=== PATIENT | female | born 1965 | race Caucasian/White ===

== ENCOUNTER → 2016-04-12 | Outpatient (CLI) | payer BC, OTHER ==
[~2016-04-12] MED LIST: B-COTAB18 PO; CALC500C3 PO; CARB25TA16 PO; IBUP-1050 PO; SNM/25100 PO; VENL37.593 PO
--- NOTE | 2016-04-12 17:08 | DIAGNOSTIC IMAGING REPORT ---
CHEST 2 VIEWS ROUTINE HISTORY: Short of breath. ACUTE BRONCHITISW/BRONCHOSPASM COMPARISON: Chest 11/16/2015. FINDINGS: The lungs are clear. Cardiac silhouette is normal in size. No pleural effusions. No pneumothorax. IMPRESSION: No acute process. Electronically signed by: Aiden Lorenzana M.D. 04/12/2016 5:06 PM Dictated Date/Time: 04/12/2016 5:04 PM
== END | disposition home or self-care (01) ==
LOC: C.RAD 16:42
PROVIDERS: ATTEND Family Medicine
DX: J20.9 Acute bronchitis, unspecified (principal)

== ENCOUNTER → 2016-04-23 | Outpatient (CLI) | payer BC, OTHER ==
--- NOTE | 2016-04-23 09:41 | DIAGNOSTIC IMAGING REPORT ---
ABDOMEN LIMITED (US) CLINICAL HISTORY: Acute left upper quadrant abdominal pain. COMPARISON STUDY: Abdomen and pelvis CT 07/22/2007. FINDINGS: Real-time sonographic imaging of the left abdominal wall was performed. No masses, fluid collections, or hernia identified within the left upper quadrant abdominal wall. IMPRESSION: No hernia identified within the left upper quadrant abdominal wall. Electronically signed by: Aiden Lorenzana M.D. 04/23/2016 9:40 AM Dictated Date/Time: 04/23/2016 9:39 AM
== END | disposition home or self-care (01) ==
LOC: C.ULTRBC 08:38
PROVIDERS: ATTEND Nurse Practitioner Adult Health
DX: R10.12 Left upper quadrant pain (principal)

== ENCOUNTER → 2016-07-30 | Outpatient (CLI) | payer BC, OTHER | END | disposition home or self-care (01) | LOC: C.PAPS 17:34 | PROVIDERS: ATTEND Obstetrics & Gynecology | DX: Z01.411 Encounter for gynecological examination (general) (routine) with abnormal findings (principal) ==

== ENCOUNTER 2016-08-11 17:37 | Emergency (ER) | payer BC, OTHER ==
[~2016-08-11] VITALS: Ht 160 cm; Wt 82.4 kg
[2016-08-11 17:43] VITALS: TEMP 36.5; Ht 160 cm; Wt 82.4 kg
--- NOTE | 2016-08-11 18:21 | EMERGENCY ROOM VISIT NOTE ---
History Report prepared by Andrea: Gerardo Mckinnon Under the Supervision of: Dr. Tano Alvares M.D. First contact with patient: 17:52 Chief Complaint: FALL Stated Complaint: FALL History of Present Illness The patient is a 51 year old female who presents to the Emergency Room with complaints of a fall that occurred [employer]. She rates her pain a 4/10 in severity. [place] and walking on the stepping stones. She lost her balance and fell, hitting her right cheek on the ground. This is the second time she lost her balance like this and fell. She also injured her bilateral arms. She denies any loss of consciousness, dental pain, neck pain, vision problems, chest pain, shortness of breath, or abdominal pain. She is currently feeling dizzy. She has a past medical history of Parkinson's Disease which she states is what caused her to fall. She currently takes L-dopa and Effexor. Source of History: patient, spouse/significant other Onset: [employer] Position: other (face) Symptom Intensity: 4/10 Quality: ache Timing: constant Associated Symptoms: No LOC, No SOB, No abdominal pain, No chest pain, No neck pain Note: She is also experiencing bilateral arm pain and dizziness. Review of Systems See HPI for pertinent positives & negatives. A total of 10 systems reviewed and were otherwise negative. Past Medical & Surgical Medical Problems: (1) Abdominal pain (2) Abdominal pain (3) Anxiety State Nos (4) Asthma, Unspecified (5) Diverticulosis Colon (W/O Ment Of Hemorrhage) (6) Dyspnea (7) Endometriosis Nos (8) Esophageal Reflux (9) Lumbar Disc Displacement (10) Parkinson disease (11) Shortness of breath (12) Tachycardia Surgical Problems: (1) H/O splenectomy Old medical records were reviewed. Nurse's notes were reviewed and I agree with. Family History Cancer Diabetes mellitus Heart disease Social History Smoking Status: Former Smoker Smokeless Tobacco Use: No Drug Use: none Marital Status: Housing Status: lives with family Occupation Status: retired Current/Historical Medications Scheduled B-Complex Vitamins (Vitamin B Complex), 1 TAB PO DAILY Levodopa/Carbidopa (Sinemet Cr 25MG/100MG), 1 TABLET PO HS Levodopa/Carbidopa (Sinemet 25MG/100MG), 1 TABLET PO QID Venlafaxine Hcl (Venlafaxine Extended Rel), 37.5 MG PO DAILY Allergies Coded Allergies: Prochlorperazine (Unverified Allergy, Mild, CRAWLING SKIN AND AGGITATION, 02/25/16) Saccharin (Unverified Allergy, Mild, CRAWLING SKIN AND AGGITATION, ) BEE STING (Unverified Allergy, Unknown, SHORTNESS OF BREATH, 02/25/16) Physical Exam Vital Signs Date Time Temp Pulse Resp B/P Pulse Ox O2 Delivery O2 Flow Rate FiO2 08/11/16 17:43 36.5 77 16 115/80 98 Room Air Physical Exam General: Non-ill appearing middle aged female. Well developed well nourished in no acute distress, breathing comfortably on room air. Normal speech HEENT: Normal cephalic. Abrasion to the right cheek. Pupils are equal round and reactive to light. Extraocular movements are intact. No hyphema. Oropharynx is pink with moist mucous membranes. No swelling of the mouth lips or tongue. Neck: Supple with a midline trachea. No meningeal signs or stiffness, no JVD or bruits. No Stridor. Chest: Clear to auscultation bilaterally. No wheezes or rhonchi. No increased work of breathing. Heart: regular rate and rhythm. Abdomen: Soft nontender, nondistended without rebound guarding or rigidity. Extremities: Right wrist is mildly tender without deformity. There is tenderness to the hand and towards the elbow, but there is no neurologic or neurovascular compromise. Spine/Back. Non tender to palpation. No CVA tenderness Skin: Good turgor without rashes. Neurologic exam: Cranial nerves two through 12 are intact. Motor and sensation are intact and symmetrical throughout. Medical Decision & Procedures ER Provider Diagnostic Interpretation: Radiology results as stated below per my review and radiologist interpretation: RIGHT WRIST MIN 3 VIEWS ROUTINE CLINICAL HISTORY: eval for trauma Right COMPARISON: None. DISCUSSION: The bones and joint spaces appear intact. There is no evidence of fracture, dislocation or bony disease. There is no evidence for soft tissue swelling. IMPRESSION: Negative study. Electronically signed by: Tristin Alex M.D. 08/11/2016 6:54 PM Dictated Date/Time: 08/11/2016 6:[address] DOSE: 732.89 mGy.cm HISTORY: Trauma eval for trauma TECHNIQUE: Multiaxial CT images of the maxillofacial region were performed and reformatted in the coronal plane without the use of contrast. COMPARISON: None. FINDINGS: The visualized cervical spine, skull base, pterygoid plates, nasal bones, lamina papyracea, orbital floors, mandible, and zygomatic arches are intact. No fractures. The orbits are unremarkable. IMPRESSION: No fractures within the maxillofacial region. Electronically signed by: Tristin Alex M.D. 08/11/2016 6:53 PM Dictated Date/Time: 08/11/2016 6:[address] DOSE: HISTORY: Trauma. Mental status change. eval for trauma TECHNIQUE: Multiaxial CT images of the head were performed without the use of intravenous contrast. Comparison: None. Findings: The paranasal sinuses and mastoid air cells are clear. The calvarium and skull base are intact. The ventricles and sulci are within normal limits. There is no mass, hematoma, midline shift, or acute infarct. Impression: No acute intracranial abnormality. Electronically signed by: Tristin Alex M.D. 08/11/2016 6:51 PM Dictated Date/Time: 08/11/2016 6:51 PM RIGHT HAND MIN 3 VIEWS ROUTINE CLINICAL HISTORY: eval for trauma Right trauma. Pain. COMPARISON: None. DISCUSSION: The bones and joint spaces appear intact. There is no evidence of fracture, dislocation or bony disease. There is no evidence for soft tissue swelling. IMPRESSION: Negative study. Electronically signed by: Tristin Alex M.D. 08/11/2016 6:54 PM Dictated Date/Time: 08/11/2016 6:53 PM RIGHT ELBOW MIN 3 VIEWS ROUTINE CLINICAL HISTORY: eval for trauma Right trauma. Pain. COMPARISON: None. DISCUSSION: The bones and joint spaces appear intact. There is no evidence of fracture, dislocation or bony disease. There is no evidence for soft tissue swelling. IMPRESSION: Negative study. Electronically signed by: Tristin Alex M.D. 08/11/2016 6:53 PM Dictated Date/Time: 08/11/2016 6:53 PM ED Course 1752: Past medical records reviewed. The patient was evaluated in room B11B, and a complete history and physical examination were performed. 2: The patient is doing well. 1930: Upon reevaluation, the patient is resting. I discussed the results and treatment plan with her. She verbalized agreement of the treatment plan. The patient was discharged home. Medical Decision Differentials include facial fracture, facial contusion, orthopedic injury, Parkinson's disease, and ocular injury. This patient comes in as described above. She suffered a mechanical fall. There was no syncope or chest pain or any symptoms prior to falling. She does have Parkinson's. She hit her right face. She has a normal neurologic exam . She has an abrasion which does not require any suturing. She is up-to-date on her tetanus booster. CAT scan of the head and face are unremarkable and and do not show any acute intracranial process or fracture. X-rays are obtained of the right arm and were unremarkable. there is no evidence of fracture to the hand, wrist, or elbow. She feels much better. She will be discharged home. She initially said it felt like her vision was slightly blurry in the right but that has resolved. I encouraged her to return if that gets worse or follow-up with her eye doctor. Additionally she should return if: Worsening of symptoms, any new problems or concerns. be careful getting up and down to use ibuprofen for pain. She is happy with plan and was discharged to home with her driving. Impression Primary Impression: Concussion Additional Impressions: Facial contusion Right wrist sprain Parkinson disease Scribe Attestation The scribe's documentation has been prepared under my direction and personally reviewed by me in its entirety. I confirm that the note above accurately reflects all work, treatment, procedures, and medical decision making performed by me. Departure Information Dispostion Home / Self-Care Referrals No Doctor, Assigned (PCP) Forms HOME CARE DOCUMENTATION FORM, IMPORTANT VISIT INFORMATION Patient Instructions My [facility] Additional Instructions Rest. Be careful getting up and down. Use ibuprofen 400 mg every 6 hours if needed. Take with food Return if: Worsening of symptoms, any new problems or concerns. Follow-up with your doctor for recheck. Problem Qualifiers
--- NOTE | 2016-08-11 18:53 | DIAGNOSTIC IMAGING REPORT ---
HEAD CT NONCONTRAST CT DOSE: HISTORY: Trauma. Mental status change. eval for trauma TECHNIQUE: Multiaxial CT images of the head were performed without the use of intravenous contrast. Comparison: None. Findings: The paranasal sinuses and mastoid air cells are clear. The calvarium and skull base are intact. The ventricles and sulci are within normal limits. There is no mass, hematoma, midline shift, or acute infarct. Impression: No acute intracranial abnormality. Electronically signed by: Tristin Alex M.D. 08/11/2016 6:51 PM Dictated Date/Time: 08/11/2016 6:51 PM
--- NOTE | 2016-08-11 18:54 | DIAGNOSTIC IMAGING REPORT ---
MAXILLOFACIAL CT CT DOSE: 732.89 mGy.cm HISTORY: Trauma eval for trauma TECHNIQUE: Multiaxial CT images of the maxillofacial region were performed and reformatted in the coronal plane without the use of contrast. COMPARISON: None. FINDINGS: The visualized cervical spine, skull base, pterygoid plates, nasal bones, lamina papyracea, orbital floors, mandible, and zygomatic arches are intact. No fractures. The orbits are unremarkable. IMPRESSION: No fractures within the maxillofacial region. Electronically signed by: Tristin Alex M.D. 08/11/2016 6:53 PM Dictated Date/Time: 08/11/2016 6:52 PM
--- NOTE | 2016-08-11 18:55 | DIAGNOSTIC IMAGING REPORT ---
RIGHT ELBOW MIN 3 VIEWS ROUTINE CLINICAL HISTORY: eval for trauma Right trauma. Pain. COMPARISON: None. DISCUSSION: The bones and joint spaces appear intact. There is no evidence of fracture, dislocation or bony disease. There is no evidence for soft tissue swelling. IMPRESSION: Negative study. Electronically signed by: Tristin Alex M.D. 08/11/2016 6:53 PM Dictated Date/Time: 08/11/2016 6:53 PM
--- NOTE | 2016-08-11 18:55 | DIAGNOSTIC IMAGING REPORT ---
RIGHT HAND MIN 3 VIEWS ROUTINE CLINICAL HISTORY: eval for trauma Right trauma. Pain. COMPARISON: None. DISCUSSION: The bones and joint spaces appear intact. There is no evidence of fracture, dislocation or bony disease. There is no evidence for soft tissue swelling. IMPRESSION: Negative study. Electronically signed by: Tristin Alex M.D. 08/11/2016 6:54 PM Dictated Date/Time: 08/11/2016 6:53 PM
--- NOTE | 2016-08-11 18:56 | DIAGNOSTIC IMAGING REPORT ---
RIGHT WRIST MIN 3 VIEWS ROUTINE CLINICAL HISTORY: eval for trauma Right COMPARISON: None. DISCUSSION: The bones and joint spaces appear intact. There is no evidence of fracture, dislocation or bony disease. There is no evidence for soft tissue swelling. IMPRESSION: Negative study. Electronically signed by: Tristin Alex M.D. 08/11/2016 6:54 PM Dictated Date/Time: 08/11/2016 6:54 PM
[2016-08-11 19:55] VITALS: BP 100/73; PULSE 75; O2SAT 95
== END 2016-08-11 20:01 | disposition home or self-care (01) ==
LOC: C.EDB 17:37
DX: S06.0X0A Concussion without loss of consciousness, initial encounter (principal); S00.83XA Contusion of other part of head, initial encounter; S63.501A Unspecified sprain of right wrist, initial encounter; W19.XXXA Unspecified fall, initial encounter; G20 Parkinson's disease; F41.9 Anxiety disorder, unspecified; K21.9 Gastro-esophageal reflux disease without esophagitis; K57.90 Diverticulosis of intestine, part unspecified, without perforation or abscess without bleeding; J45.909 Unspecified asthma, uncomplicated; M51.26 Other intervertebral disc displacement, lumbar region; N80.9 Endometriosis, unspecified; Z98.890 Other specified postprocedural states; Z87.891 Personal history of nicotine dependence; Z79.899 Other long term (current) drug therapy; Z88.8 Allergy status to other drugs, medicaments and biological substances; Z91.030 Bee allergy status; Z80.9 Family history of malignant neoplasm, unspecified; Z83.3 Family history of diabetes mellitus; Z82.49 Family history of ischemic heart disease and other diseases of the circulatory system

== ENCOUNTER → 2017-10-28 | Outpatient (CLI) | payer BC, OTHER ==
[~2017-10-28] MED LIST changes: -CALC500C3 PO; -IBUP-1050 PO
== END | disposition home or self-care (01) ==
LOC: C.LABSPEC 11:44
PROVIDERS: ATTEND Nurse Practitioner Family
DX: J02.9 Acute pharyngitis, unspecified (principal)

== ENCOUNTER 2020-01-30 08:36 | Observation (INO) ==
[2020-01-30] MEDS ORDERED: ASPIRIN CHEW 324 MG PO STA (10:16)
--- NOTE | 2020-01-30 10:20 | Emergency Department Note ---
Impression & Plan Chest pain, Arm pain, Jaw pain, Cough, High serum chloride ED Provider Note NAME: DANIAL WILSON AGE: 54 SEX: F : 1965 ARRIVES VIA: Walk-In INFORMANT: Patient ED PROVIDER(S): Lincoln Arcos DO CHIEF COMPLAINT: Chest pain HPI: Patient is a 54-year-old female with a past medical history of hyperlipidemia, previous smoker, and Parkinson's disease. She notes she has had chest pain for the past 2 days. Is worse with exertion. She has been using her inhaler more frequently as well. She has an intermittent cough, no runny nose and loss of taste or smell. She notes cough is dry. Denies any belly pain, nausea, vomiting or diarrhea. No dysuria, urgency or frequency. No other exacerbating or remitting factors. Grandparents all had MIs. He has been tested for coronavirus as she works at a [employer] and everyone has been exposed recently to Covid through the inmates. ROS: See above HPI for pertinent positives & negatives. A total of 10 systems reviewed and were otherwise negative. PAST MEDICAL HISTORY:See Below PAST SURGICAL HISTORY:See Below FAMILY HISTORY:See Below SOCIAL HISTORY:See Below HOME MEDICATIONS:See Below ALLERGIES:See Below VITALS:See Below PHYSICAL EXAMINATION: GENERAL: Sitting up in bed, alert, well appearing, well nourished, no distress, non-toxic EYE EXAM: normal conjunctiva. OROPHARYNX: no exudate, no erythema, lips, buccal mucosa, and tongue normal and mucous membranes are moist NECK: supple, no nuchal rigidity, no adenopathy, non-tender LUNGS: Clear to auscultation. Normal chest wall mechanics HEART: no murmurs, S1 normal and S2 normal ABDOMEN: abdomen soft, non-tender, normo-active bowel sounds, no masses, no re bound or guarding. BACK: Back is symmetrical on inspection and there is no deformity, no midline te nderness, no CVA tenderness. SKIN: no rashes and no bruising UPPER EXTREMITIES: upper extremities are grossly normal. LOWER EXTREMITIES: No pitting edema. Calves are equal bilateral NEURO EXAM: Normal sensorium, cranial nerves II-XII grossly intact, normal speech, no gross weakness of arms, no gross weakness of legs. MEDICAL DECISION MAKING: Patient is a 54-year-old female who presents ER for midsternal chest pain, arm pain, jaw pain and some intermittent shortness of breath. She does have a very infrequent cough. Does have a history of hyperlipidemia and a previous smoker. Family history of MIs. Labs show no significant leukocytosis or anemia. INR unremarkable. D-dimer negative and a low risk patient. Will not pursue any further. Chloride slightly elevated. BMP was otherwise unremarkable as well as LFTs bilirubin and troponin was negative. Covid was negative. EKG was not significant change from previous. Chest x-ray without any focal infiltrate. Patient was given nitro and aspirin and had complete resolution of pain. Updated bedside and discussed with hospitalist with moderate risk from the heart score. Triage Nursing notes reviewed. Prior medical records reviewed Vital Signs: reviewed and remarkable for no significant abnormalities Differential diagnosis: Differential diagnoses includes but is not limited to acute coronary syndrome, myocardial infarction, pericarditis, pulmonary embolus, aortic dissection, pneumonia, pneumothorax, musculoskeletal, shingles, esophageal. ER treatment provided: See below Diagnostics interpreted by me: ECG: Sinus rhythm rate of 62 Normal axis No PVCs Normal QTC Nonspecific ST wave changes in the lateral leads T wave flattening in the inferior leads Unchanged from August 2019 Cardiac Monitoring: An order was placed for continuous cardiac monitoring. The monitor shows a rate of 65 with sinus rhythm. Laboratory studies: As stated above and show below. Imaging studies: Portable AP upright 1 view of the chest shows no focal infiltrate or pneumothorax Consultation(s): Discussed with Dr. Christiano Jones for further evaluation ED COURSE: Procedures: none Critical Care: None Past Med/Surg History Medical History (Updated 01/30/20 @ 14:39 by Lincoln Arcos DO) Asthma RES. INH USUALLY ONLY WHEN GETS SICK> OTHERWISE WELL CONTROLLED GERD (gastroesophageal reflux disease) Parkinsons disease Surgical History History of anesthesia reaction WAS SOMEWHAT AWAKE DURING EGD AND CAN REMEMBER GETTING SCOPE DOWN THROAT History of colonoscopy History of ERCP History of esophagogastroduodenoscopy (EGD) History of laparoscopy Hx of hand surgery TENDON REPAIR LEFT HAND Nausea and vomiting after administration of anesthetic agent S/P splenectomy S/P tonsillectomy and adenoidectomy S/P tubal ligation S/P wisdom tooth extraction Family History Mother Hypertension Essential tremor Unknown Heart disease Breast cancer Hypertension Son Schizophrenia Denies family history of Ovarian cancer Prostate cancer Myocardial infarction Colorectal cancer Social History Smoking Status: Former smoker Tobacco Type: Cigarettes Age Started Using Tobacco: 16; Age Quit Using Tobacco: 43; packs per day: 0.5; Number of Years Since Quit: 10; Second Hand Exposure: No; Hx Alcohol Use: Yes Alcohol type: wine Alcohol Intake Frequency: Monthly or Less Hx Substance Use: No Preferred Language: [place] Communication Ability: Effective Novelty Dipper Required: No Beliefs That Will Affect Care: None marital status: Current Living Situation: Spouse current occupational status: employed current occupation: NURSE Feels Safe at Home: Yes Childhood Exposure to Second-Hand Smoke: Yes Dental Care, Regularly: No Physical Activity Frequency: 3-4 Times per Week Seatbelt Use: always Sunscreen Use: Yes Assistive Devices: Glasses Allergies Allergies Allergy/AdvReac Type Severity Reaction Status Date / Time prochlorperazine Allergy Mild CRAWLING Verified 01/30/20 09:59 SKIN AND AGGITATION bee venom protein (honey bee) Allergy Unknown SHORTNESS Verified 01/30/20 09:59 OF BREATH Home Meds Home Medications Medication Instructions Recorded Confirmed ibuprofen [Advil] 800 mg PO DAILY PRN 08/20/19 01/30/20 multivitamin 1 tab PO QAM 08/20/19 01/30/20 omeprazole 20 mg PO HS 01/30/20 01/30/20 Previous Rx's Medication Instructions Recorded ondansetron 8 mg disintegrating 8 mg PO Q8H PRN #20 tab 09/18/19 tablet carbidopa ER 50 mg-levodopa 200 mg 1 tab PO TID #270 tab 11/05/19 tablet,extended release istradefylline 20 mg tablet 20 mg PO DAILY #30 tab 11/05/19 albuterol sulfate 90 mcg/actuation See Rx Instructions INH Q6H PRN 01/01/20 aerosol inhaler #18 gm Results & Data (ED) Vital Signs Vital Signs - 24 hr 01/30/20 08:40 01/30/20 09:34 01/30/20 09:49 Temperature 36.7 C Temperature Source Oral Pulse Rate 64 68 68 Pulse Rate [Apical] Pulse Rate from SpO2 Sensor 69 68 Pulse Rhythm [Apical] Pulse Strength [Apical] Respiratory Rate 20 23 22 Respiratory Effort / Characteristics Respiratory Depth Respiratory Pattern Blood Pressure 144/88 H 125/83 Blood Pressure [Left Arm] Blood Pressure Mean 106 90 Blood Pressure Mean [Left Arm] Blood Pressure Position [Left Arm] Pulse Oximetry 99 97 97 Oxygen Delivery Method Room Air Sepsis Recent Fever Within 48 Hours No Sepsis New/Unexplained Change in Mental Status N/A Sepsis Action Taken by Nursing No Action Required 01/30/20 09:55 01/30/20 10:00 01/30/20 10:01 Temperature Temperature Source Pulse Rate 64 62 Pulse Rate [Apical] Pulse Rate from SpO2 Sensor 62 62 Pulse Rhythm [Apical] Pulse Strength [Apical] Respiratory Rate 10 L 12 Respiratory Effort / Characteristics Non-Labored Respiratory Depth Normal Respiratory Pattern Regular Blood Pressure 125/68 Blood Pressure [Left Arm] Blood Pressure Mean 72 Blood Pressure Mean [Left Arm] Blood Pressure Position [Left Arm] Pulse Oximetry 95 87 L 97 Oxygen Delivery Method Room Air Sepsis Recent Fever Within 48 Hours Sepsis New/Unexplained Change in Mental Status Sepsis Action Taken by Nursing 01/30/20 10:30 01/30/20 10:40 01/30/20 10:50 Temperature Temperature Source Pulse Rate 60 55 L 80 Pulse Rate [Apical] Pulse Rate from SpO2 Sensor 58 L 54 L 60 Pulse Rhythm [Apical] Pulse Strength [Apical] Respiratory Rate 17 16 20 Respiratory Effort / Characteristics Respiratory Depth Respiratory Pattern Blood Pressure 125/77 Blood Pressure [Left Arm] Blood Pressure Mean 103 Blood Pressure Mean [Left Arm] Blood Pressure Position [Left Arm] Pulse Oximetry 92 95 90 Oxygen Delivery Method Sepsis Recent Fever Within 48 Hours Sepsis New/Unexplained Change in Mental Status Sepsis Action Taken by Nursing 01/30/20 10:57 01/30/20 10:59 01/30/20 11:00 Temperature Temperature Source Pulse Rate 62 Pulse Rate [Apical] 62 Pulse Rate from SpO2 Sensor 64 Pulse Rhythm [Apical] Regular Pulse Strength [Apical] Normal Respiratory Rate 21 17 Respiratory Effort / Characteristics Non-Labored Respiratory Depth Normal Respiratory Pattern Regular Blood Pressure 135/79 Blood Pressure [Left Arm] 125/77 Blood Pressure Mean 95 Blood Pressure Mean [Left Arm] 93 Blood Pressure Position [Left Arm] Sitting Pulse Oximetry 98 99 99 Oxygen Delivery Method Room Air Room Air Sepsis Recent Fever Within 48 Hours Sepsis New/Unexplained Change in Mental Status Sepsis Action Taken by Nursing 01/30/20 11:03 01/30/20 11:10 01/30/20 11:20 Temperature Temperature Source Pulse Rate 70 68 57 L Pulse Rate [Apical] 68 Pulse Rate from SpO2 Sensor 69 65 57 L Pulse Rhythm [Apical] Regular Pulse Strength [Apical] Normal Respiratory Rate 19 27 H 13 Respiratory Effort / Characteristics Non-Labored Respiratory Depth Normal Respiratory Pattern Regular Blood Pressure 108/61 Blood Pressure [Left Arm] 108/61 Blood Pressure Mean 86 Blood Pressure Mean [Left Arm] 76 Blood Pressure Position [Left Arm] Sitting Pulse Oximetry 95 95 95 Oxygen Delivery Method Room Air Sepsis Recent Fever Within 48 Hours Sepsis New/Unexplained Change in Mental Status Sepsis Action Taken by Nursing 01/30/20 11:30 01/30/20 11:40 01/30/20 11:50 Temperature Temperature Source Pulse Rate 62 59 L 60 Pulse Rate [Apical] Pulse Rate from SpO2 Sensor 61 59 L 58 L Pulse Rhythm [Apical] Pulse Strength [Apical] Respiratory Rate 12 15 17 Respiratory Effort / Characteristics Respiratory Depth Respiratory Pattern Blood Pressure 117/75 Blood Pressure [Left Arm] Blood Pressure Mean 87 Blood Pressure Mean [Left Arm] Blood Pressure Position [Left Arm] Pulse Oximetry 96 94 95 Oxygen Delivery Method Sepsis Recent Fever Within 48 Hours Sepsis New/Unexplained Change in Mental Status Sepsis Action Taken by Nursing 01/30/20 12:00 01/30/20 12:01 01/30/20 12:10 Temperature Temperature Source Pulse Rate 63 62 62 Pulse Rate [Apical] Pulse Rate from SpO2 Sensor 63 61 56 L Pulse Rhythm [Apical] Pulse Strength [Apical] Respiratory Rate 21 16 12 Respiratory Effort / Characteristics Respiratory Depth Respiratory Pattern Blood Pressure 120/66 Blood Pressure [Left Arm] Blood Pressure Mean 92 Blood Pressure Mean [Left Arm] Blood Pressure Position [Left Arm] Pulse Oximetry 95 94 91 Oxygen Delivery Method Sepsis Recent Fever Within 48 Hours Sepsis New/Unexplained Change in Mental Status Sepsis Action Taken by Nursing 01/30/20 12:18 01/30/20 12:20 01/30/20 12:21 Temperature Temperature Source Pulse Rate 67 73 73 Pulse Rate [Apical] Pulse Rate from SpO2 Sensor 69 70 73 Pulse Rhythm [Apical] Pulse Strength [Apical] Respiratory Rate 20 15 22 Respiratory Effort / Characteristics Respiratory Depth Respiratory Pattern Blood Pressure 125/78 137/95 Blood Pressure [Left Arm] Blood Pressure Mean 92 118 Blood Pressure Mean [Left Arm] Blood Pressure Position [Left Arm] Pulse Oximetry 97 97 94 Oxygen Delivery Method Sepsis Recent Fever Within 48 Hours Sepsis New/Unexplained Change in Mental Status Sepsis Action Taken by Nursing 01/30/20 12:30 01/30/20 12:31 01/30/20 12:40 Temperature Temperature Source Pulse Rate 63 62 62 Pulse Rate [Apical] Pulse Rate from SpO2 Sensor 64 63 63 Pulse Rhythm [Apical] Pulse Strength [Apical] Respiratory Rate 18 15 19 Respiratory Effort / Characteristics Respiratory Depth Respiratory Pattern Blood Pressure 98/56 L Blood Pressure [Left Arm] Blood Pressure Mean 67 Blood Pressure Mean [Left Arm] Blood Pressure Position [Left Arm] Pulse Oximetry 92 93 94 Oxygen Delivery Method Sepsis Recent Fever Within 48 Hours Sepsis New/Unexplained Change in Mental Status Sepsis Action Taken by Nursing 01/30/20 12:50 01/30/20 13:00 01/30/20 13:10 Temperature Temperature Source Pulse Rate 61 63 68 Pulse Rate [Apical] Pulse Rate from SpO2 Sensor 61 61 63 Pulse Rhythm [Apical] Pulse Strength [Apical] Respiratory Rate 17 14 14 Respiratory Effort / Characteristics Respiratory Depth Respiratory Pattern Blood Pressure 108/77 Blood Pressure [Left Arm] Blood Pressure Mean 82 Blood Pressure Mean [Left Arm] Blood Pressure Position [Left Arm] Pulse Oximetry 92 96 94 Oxygen Delivery Method Sepsis Recent Fever Within 48 Hours Sepsis New/Unexplained Change in Mental Status Sepsis Action Taken by Nursing 01/30/20 13:20 01/30/20 13:30 01/30/20 13:40 Temperature Temperature Source Pulse Rate 59 L 56 L 61 Pulse Rate [Apical] Pulse Rate from SpO2 Sensor 59 L 54 L 65 Pulse Rhythm [Apical] Pulse Strength [Apical] Respiratory Rate 13 21 16 Respiratory Effort / Characteristics Respiratory Depth Respiratory Pattern Blood Pressure 118/75 Blood Pressure [Left Arm] Blood Pressure Mean 80 Blood Pressure Mean [Left Arm] Blood Pressure Position [Left Arm] Pulse Oximetry 90 92 97 Oxygen Delivery Method Sepsis Recent Fever Within 48 Hours Sepsis New/Unexplained Change in Mental Status Sepsis Action Taken by Nursing 01/30/20 13:50 01/30/20 14:00 01/30/20 14:10 Temperature Temperature Source Pulse Rate 60 62 60 Pulse Rate [Apical] Pulse Rate from SpO2 Sensor 61 63 63 Pulse Rhythm [Apical] Pulse Strength [Apical] Respiratory Rate 14 21 15 Respiratory Effort / Characteristics Respiratory Depth Respiratory Pattern Blood Pressure 115/74 Blood Pressure [Left Arm] Blood Pressure Mean 77 Blood Pressure Mean [Left Arm] Blood Pressure Position [Left Arm] Pulse Oximetry 96 96 97 Oxygen Delivery Method Sepsis Recent Fever Within 48 Hours Sepsis New/Unexplained Change in Mental Status Sepsis Action Taken by Nursing 01/30/20 14:20 Temperature Temperature Source Pulse Rate 63 Pulse Rate [Apical] Pulse Rate from SpO2 Sensor 62 Pulse Rhythm [Apical] Pulse Strength [Apical] Respiratory Rate 24 Respiratory Effort / Characteristics Respiratory Depth Respiratory Pattern Blood Pressure Blood Pressure [Left Arm] Blood Pressure Mean Blood Pressure Mean [Left Arm] Blood Pressure Position [Left Arm] Pulse Oximetry 94 Oxygen Delivery Method Sepsis Recent Fever Within 48 Hours Sepsis New/Unexplained Change in Mental Status Sepsis Action Taken by Nursing Laboratory Data Result diagrams: 01/30/20 09:55 01/30/20 09:55 Lab Results 01/30/20 01/30/20 01/30/20 Range/Units 09:55 09:55 09:55 WBC 7.94 (4.8-10.8) K/uL RBC 4.51 (4.2-5.4) M/uL Hgb 14.4 (12.0-16.0) g/dL Hct 42.8 (37-47) % MCV 94.9 (80-100) fL MCH 31.9 (25-34) pg MCHC 33.6 (32-36) g/dL RDW Std Deviation 51.3 H (36.4-46.3) fL RDW Coeff of Klaus 14.7 H (11.5-14.5) % Plt Count 230 (130-400) K/uL MPV 13.9 H (7.4-10.4) fL Immature Gran % (Auto) 0.1 % Neut % (Auto) 36.3 % Lymph % (Auto) 44.5 % Roane % (Auto) 13.6 % Eos % (Auto) 5.0 % Baso % (Auto) 0.5 % Neut # (Auto) 2.88 (1.4-6.5) K/uL Lymph # (Auto) 3.53 H (1.2-3.4) K/uL Roane # (Auto) 1.08 H (0.11-0.59) K/uL Eos # (Auto) 0.40 (0-0.5) K/uL Baso # (Auto) 0.04 (0-0.2) K/uL Immature Gran # (Auto) 0.01 (0.00-0.02) K/uL PT 10.5 (9.0-12.0) Seconds INR 1.0 (0.9-1.1) APTT 28.4 (21.0-31.0) Seconds PTT Ratio 1.0 D-Dimer 460 (0-500) ug/L FEU Sodium 142 (136-145) mmol/L Potassium 3.6 (3.5-5.1) mmol/L Chloride 110 H (98-107) mmol/L Carbon Dioxide 31 (21-32) mmol/L Anion Gap 1.0 L (3-11) BUN 10 (7-18) mg/dl Creatinine 0.69 (0.6-1.2) mg/dl Est Cr Clr Drug Dosing Not Reportable Est GFR ( Amer) 115.2 Est GFR (Non-Af Amer) 99.4 BUN/Creatinine Ratio 15.1 (10-20) Glucose 85 (70-99) mg/dl Calcium 8.9 (8.5-10.1) mg/dl Total Bilirubin 0.5 (0.2-1) mg/dl AST 17 (15-37) U/L ALT 12 (12-78) U/L Alkaline Phosphatase 98 (45-117) U/L Troponin I < 0.015 (0-0.045) ng/ml Total Protein 7.3 (6.4-8.2) gm/dl Albumin 3.7 (3.4-5.0) gm/dl Globulin 3.6 (2.5-4.0) gm/dl Albumin/Globulin Ratio 1.0 (0.9-2) COVID-19 Eval Order COVID-19 PCR (Negative) 01/30/20 01/30/20 Range/Units 12:18 12:18 WBC (4.8-10.8) K/uL RBC (4.2-5.4) M/uL Hgb (12.0-16.0) g/dL Hct (37-47) % MCV (80-100) fL MCH (25-34) pg MCHC (32-36) g/dL RDW Std Deviation (36.4-46.3) fL RDW Coeff of Klaus (11.5-14.5) % Plt Count (130-400) K/uL MPV (7.4-10.4) fL Immature Gran % (Auto) % Neut % (Auto) % Lymph % (Auto) % Roane % (Auto) % Eos % (Auto) % Baso % (Auto) % Neut # (Auto) (1.4-6.5) K/uL Lymph # (Auto) (1.2-3.4) K/uL Roane # (Auto) (0.11-0.59) K/uL Eos # (Auto) (0-0.5) K/uL Baso # (Auto) (0-0.2) K/uL Immature Gran # (Auto) (0.00-0.02) K/uL PT (9.0-12.0) Seconds INR (0.9-1.1) APTT (21.0-31.0) Seconds PTT Ratio D-Dimer (0-500) ug/L FEU Sodium (136-145) mmol/L Potassium (3.5-5.1) mmol/L Chloride (98-107) mmol/L Carbon Dioxide (21-32) mmol/L Anion Gap (3-11) BUN (7-18) mg/dl Creatinine (0.6-1.2) mg/dl Est Cr Clr Drug Dosing Est GFR ( Amer) Est GFR (Non-Af Amer) BUN/Creatinine Ratio (10-20) Glucose (70-99) mg/dl Calcium (8.5-10.1) mg/dl Total Bilirubin (0.2-1) mg/dl AST (15-37) U/L ALT (12-78) U/L Alkaline Phosphatase (45-117) U/L Troponin I (0-0.045) ng/ml Total Protein (6.4-8.2) gm/dl Albumin (3.4-5.0) gm/dl Globulin (2.5-4.0) gm/dl Albumin/Globulin Ratio (0.9-2) COVID-19 Eval Order Covid19 Done at [facility] COVID-19 PCR NEGATIVE (Negative) Administered Medications Nitroglycerin (Nitroglycerin Sl 0.4 Mg/Tab Tab) 0.4 mg SL PRN PRN PRN Reason: chest pain Stop: 02/29/20 10:15 Last Admin: 01/30/20 12:18 Dose: 0.4 mg Documented by: [id number] Admin: 01/30/20 11:00 Dose: 0.4 mg Documented by: [id number] Discontinued Medications Al Hydrox/Mg Hydrox/Simethicone (Aluminum/Magnesium Susp 30 Ml Udc) 30 ml PO NOW STA Stop: 01/30/20 14:24 Last Admin: 01/30/20 14:33 Dose: 30 ml Documented by: [id number] Aspirin (Aspirin Chew 324 Mg) 324 mg PO NOW STA Stop: 01/30/20 10:17 Last Admin: 01/30/20 11:01 Dose: 324 mg Documented by: [id number] Discharge Plan Visit Data Chief Complaint: Shortness of Breath/Dyspnea Stated Complaint: CHEST PAIN ED Provider: Lincoln Arcos Discharge Problem: Chest pain, Arm pain, Jaw pain, Cough, High serum chloride Forms Stand Alone Forms: [facility] Prescriptions Prescriptions: No Action albuterol sulfate [Ventolin HFA] 90 mcg/actuation HFA aerosol inhaler See Rx Instructions INH Q6H PRN (Reason: Shortness Of Breath) Qty: 18 RF: 2 ondansetron 8 mg tablet,disintegrating 8 mg PO Q8H PRN (Reason: nausea and vomiting) Qty: 20 RF: 0 Nourianz 20 mg tablet 20 mg PO DAILY Qty: 30 RF: 3 carbidopa-levodopa 50-200 mg tablet extended release 1 tab PO TID Qty: 270 RF: 3 multivitamin Tablet 1 tab PO QAM RF: 0 ibuprofen [Advil] 200 mg Tablet 800 mg PO DAILY PRN (Reason: Pain) RF: 0 omeprazole 20 mg Tablet,Disintegrat, Delay Rel 20 mg PO HS RF: 0 Discharge Problem: Chest pain Qualifiers: Chest pain type: unspecified Qualified Code(s): R07.9 - Chest pain, unspecified Arm pain Qualifiers: Laterality: left Qualified Code(s): M79.602 - Pain in left arm
[2020-01-30 10:30] LABS: Basophils # (auto) 0.04 K/uL (0-0.2); Basophils % (auto) 0.5 %; Hematocrit (blood only) 42.8 % (37-47); Hemoglobin 14.4 g/dL (12.0-16.0); Immature Granulocytes # (auto) 0.01 K/uL (0.00-0.02); Immature Granulocytes % (auto) 0.1 %; Lymphocytes # (auto) 3.53 K/uL (1.2-3.4); Lymphocytes % (auto) 44.5 %; Mean Corpuscular Hemoglobin 31.9 pg (25-34); Mean Corpuscular Hgb Conc 33.6 g/dL (32-36); Mean Corpuscular Volume 94.9 fL (80-100); Mean Platelet Volume 13.9 fL (7.4-10.4); Monocytes # (auto) 1.08 K/uL (0.11-0.59); Monocytes % (auto) 13.6 %; Neutrophils # (auto) 2.88 K/uL (1.4-6.5); Neutrophils % (auto) 36.3 %; Platelet Count 230 K/uL (130-400); RDW Coefficient of Variation 14.7 % (11.5-14.5); RDW Standard Deviation 51.3 fL (36.4-46.3); Red Blood Count 4.51 M/uL (4.2-5.4); White Blood Count 7.94 K/uL (4.8-10.8)
[2020-01-30 10:46] LABS: D Dimer 460 ug/L FEU (0-500); Partial Thromboplastin Time 28.4 Seconds (21.0-31.0); Prothrombin Time 10.5 Seconds (9.0-12.0)
[2020-01-30 10:47] LABS: Alanine Aminotransferase 12 U/L (12-78); Albumin Level 3.7 gm/dl (3.4-5.0); Aspartate Aminotransferase 17 U/L (15-37); BUN Creatinine Ratio 15.1 (10-20); Blood Urea Nitrogen 10 mg/dl (7-18); Calcium 8.9 mg/dl (8.5-10.1); Carbon Dioxide 31 mmol/L (21-32); Chloride 110 mmol/L (98-107); Est GFR (African American) 115.2; Est GFR (Non-African American) 99.4; Glucose 85 mg/dl (70-99); Potassium 3.6 mmol/L (3.5-5.1); Sodium 142 mmol/L (136-145)
[2020-01-30 10:51] LABS: Alkaline Phosphatase 98 U/L (45-117); Bilirubin,Total 0.5 mg/dl (0.2-1); Globulin 3.6 gm/dl (2.5-4.0); Total Protein 7.3 gm/dl (6.4-8.2); Troponin I < 0.015 ng/ml (0-0.045)
[2020-01-30] MEDS: NITROGLYCERIN SL 0.4 MG/TAB TAB SL PRN ×2 (11:00→12:18)
--- NOTE | 2020-01-30 11:47 | XRay Report ---
XR chest 1V portable CLINICAL HISTORY: Chest pain. Cough. COMPARISON STUDY: Chest radiograph January 08, 2019. FINDINGS: Lung volumes are normal. Lungs are clear. There is no pneumothorax or pleural effusion. Car diac size is at the upper limits of normal and unchanged. Mediastinal contours are normal. There is n o evidence for pulmonary edema. IMPRESSION: No acute cardiopulmonary findings. ACT 112: Negative or not required by law. Electronically signed by: Volodymyr Peoples M.D. 01/30/2020 11:45 AM
--- NOTE | 2020-01-30 13:00 | History & Physical Report ---
Date of Service January 30, 2020 Assessment & Plan (1) Atypical chest pain: Relatively low suspicion based on history although exertional nature and lack of alternative explanation for pain is concerning. Serial troponins overnight. Stress echo in AM if negative. HbA1C and lipid panel in AM for risk reduction. Nitro patch overnight as has been helpful for the pain (2) Parkinson disease: Diagnosed 2011 - freezing and spacing out. Continue Sinemet ER 50/200 3 times daily. Continue Nourianz 20 mg p.o. daily (3) DVT prophylaxis: Low risk, no prophylaxis indicated. Admission and Anticipated Discharge Date Admission Date: 01/30/2020 History of Present Illness Chief Complaint: Chest pain Primary Care Provider: Erin Rodriguez MD Irina Dykes is a 54-year-old female with Parkinson disease who presents to the ER with chest pain. Started 2 days ago. Slightly on right anterior chest. Not fully resolved since but would wax and wane. Moved to left side and now radiating to back and left arm. Exertional. Non-pleuritic/positional/related to food. No nausea, vomiting, diaphoresis (small hot flash this morning), shortness of breath. Took x2 PO simethicone last night with no effect. Using albuterol inhaler this weekend due to wheezing and non-productive cough but she does not related the chest pain to this and no difference with her albuterol inhaler. Smoked 10 years ago. 15 years @ 5-6 cigarettes/day. Parents in good health. No siblings. Grandparents of heart attacks in their 70s. History of GERD and ulcers but this feels different. Previously on ranitidine as needed, stopped taking this when it was taken off the market. Now regularly taking omeprazole 20mg PO daily which controls her symptoms. In the ER CXR showed no acute cardiopulmonary findings, EKG was unremarkable for acute coronary syndrome, d-dimer and initial troponin negative. He was given 324 mg p.o. aspirin and 0.4 mg SL nitroglycerin with relief of her pain. COVID- 19 testing performed due to her occupation in [employer] which was subsequently negative. She was referred to the medicine team for consideration of admission for chest pain rule out ND.w Allergies Allergy/AdvReac Type Severity Reaction Status Date / Time prochlorperazine Allergy Mild CRAWLING Verified 01/30/20 09:59 SKIN AND AGGITATION bee venom protein (honey bee) Allergy Unknown SHORTNESS Verified 01/30/20 09:59 OF BREATH Home Medications Home Medications Medication Instructions Recorded Confirmed Type ibuprofen [Advil] 800 mg PO DAILY PRN 08/20/19 01/30/20 History multivitamin 1 tab PO QAM 08/20/19 01/30/20 History ondansetron 8 mg disintegrating 8 mg PO Q8H PRN #20 tab 09/18/19 01/30/20 Rx tablet carbidopa ER 50 mg-levodopa 200 mg 1 tab PO TID #270 tab 11/05/19 01/30/20 Rx tablet,extended release istradefylline 20 mg tablet 20 mg PO DAILY #30 tab 11/05/19 01/30/20 Rx albuterol sulfate 90 mcg/actuation See Rx Instructions INH Q6H PRN 01/01/20 01/30/20 Rx aerosol inhaler #18 gm omeprazole 20 mg PO HS 01/30/20 01/30/20 History Past Med/Surg History Medical History (Updated 01/31/20 @ 07:33 by Christiano Jones MD) Asthma RES. INH USUALLY ONLY WHEN GETS SICK> OTHERWISE WELL CONTROLLED GERD (gastroesophageal reflux disease) Parkinsons disease Surgical History History of anesthesia reaction WAS SOMEWHAT AWAKE DURING EGD AND CAN REMEMBER GETTING SCOPE DOWN THROAT History of colonoscopy History of ERCP History of esophagogastroduodenoscopy (EGD) History of laparoscopy Hx of hand surgery TENDON REPAIR LEFT HAND Nausea and vomiting after administration of anesthetic agent S/P splenectomy S/P tonsillectomy and adenoidectomy S/P tubal ligation S/P wisdom tooth extraction Family History Mother Hypertension Essential tremor Unknown Heart disease Breast cancer Hypertension Son Schizophrenia Denies family history of Ovarian cancer Prostate cancer Myocardial infarction Colorectal cancer Social History Smoking Status: Former smoker Tobacco Type: Cigarettes Age Started Using Tobacco: 16; Age Quit Using Tobacco: 43; packs per day: 0.5; Number of Years Since Quit: 10; Second Hand Exposure: No; Hx Alcohol Use: Yes Alcohol type: wine Alcohol Intake Frequency: Monthly or Less Hx Substance Use: No Preferred Language: Gabonese Communication Ability: Effective Junior Accountant Required: No Beliefs That Will Affect Care: None marital status: Current Living Situation: Spouse current occupational status: employed current occupation: NURSE Other Information That Helps Us Care for You: No Feels Safe at Home: Yes Safety Concerns: Feels Safe At This Time Childhood Exposure to Second-Hand Smoke: Yes Dental Care, Regularly: No Physical Activity Frequency: 3-4 Times per Week Seatbelt Use: always Sunscreen Use: Yes Assistive Devices: None Review of Systems Review of Systems: All systems reviewed & are unremarkable except as noted in HPI & below Gastrointestinal: Decreased appetite Physical Exam Constitutional: well developed and well nourished; no acute distress Eyes: + anicteric sclerae; normal pupil size ENMT: external ear and nose normal, oropharynx normal Neck: trachea midline, no thyromegaly Respiratory: normal respiratory effort, lungs clear to auscultation Cardiovascular: Rate/Rhythm: regular rate and regular rhythm Heart Sounds: no murmur Vessels: no JVD Extremities: normal capillary refill and + pedal edema (trace to mid shins, equal b/l); no calf tenderness Chest (Breasts): Additional Comments: Chest pain not reproducible Gastrointestinal (Abdomen): normal bowel sounds, soft, nontender, no hepatosplenomegaly Musculoskeletal: no cyanosis or clubbing, extremities motor strength 5/5 Skin: no rashes, warm and dry Neurologic: moves all extremities and awake; not confused Psychiatric: A+Ox3, euthymic affect Results & Data Results & Data ([facility]) Vital Signs (Past 12 Hours) Vital Signs Temp Pulse Pulse Resp BP BP Pulse Ox 01/30/20 12:10 62 12 91 01/30/20 12:01 62 16 120/66 94 01/30/20 12:00 63 21 95 01/30/20 11:50 60 17 95 01/30/20 11:40 59 L 15 94 01/30/20 11:30 62 12 117/75 96 01/30/20 11:20 57 L 13 95 01/30/20 11:10 68 27 H 95 01/30/20 11:03 70 68 19 108/61 108/61 95 01/30/20 11:00 62 17 135/79 99 01/30/20 10:59 99 01/30/20 10:57 62 21 125/77 98 01/30/20 10:50 80 20 90 01/30/20 10:40 55 L 16 95 01/30/20 10:30 60 17 125/77 92 01/30/20 10:01 62 12 125/68 97 01/30/20 10:00 64 10 L 87 L 01/30/20 09:55 95 01/30/20 09:49 68 22 97 01/30/20 09:34 68 23 125/83 97 01/30/20 08:40 36.7 C 64 20 144/88 H 99 Diagnostic Findings XR chest 1V portable IMPRESSION: No acute cardiopulmonary findings. ECG Indication: chest pain Rate (beats per minute): 62 Rhythm: normal sinus Findings: no acute ischemic change Comparison ECG Date: from (August 20, 2019) Change: no significant change Code Status & VTE Plan Code Status Full VTE Prophylaxis Plan VTE Prophylaxis will be ordered: No PG Care Time/CCT Total # of Minutes Spent Total Time Spent with Patient: Total time spent is greater than 50% in coordination of care (as documented) at patient's floor/unit and/or counseling patient: Coding Level of Care Code 12086 OBS Care - Level 3 Diagnoses Atypical chest pain R07.89 Parkinson disease G20 DVT prophylaxis Z29.9
[2020-01-30] MEDS ORDERED: ALUMINUM/MAGNESIUM SUSP 30 ML UDC PO STA (14:23)
[2020-01-30] MEDS ORDERED: POLYETHYLENE (MIRALAX) 17 GM PACK PO PRN ×2 (15:39→15:47)
[2020-01-30] MEDS ORDERED: ONDANSETRON INJ 2 MG/ML 2 ML VIAL IV PRN ×2 (15:39→15:47)
[2020-01-30] MEDS ORDERED: NITROGLYCERIN 2% OINTMENT 30GM TUBE EXT SCH ×2 (15:39→15:45)
[2020-01-30] MEDS ORDERED: ACETAMINOPHEN 325 MG TAB PO PRN (15:39)
[2020-01-30] MEDS ORDERED: NITROGLYCERIN SL 0.4 MG/TAB TAB SL PRN ×2 (15:39→15:47)
[2020-01-30] MEDS ORDERED: ONDANSETRON 8MG OD TAB PO PRN ×2 (15:39→15:47)
[2020-01-30] MEDS ORDERED: ALBUTEROL HFA 8 GM INHALER INH PRN ×2 (15:39→15:47)
[2020-01-30] MEDS: NITROGLYCERIN 2% OINTMENT 30GM TUBE EXT SCH ×2 (16:23→21:50)
[2020-01-30] MEDS: CARBIDOPA/LEVODOPA 50/200MG EXT REL TAB PO SCH (18:56)
[2020-01-30] MEDS: ACETAMINOPHEN 325 MG TAB PO PRN (20:40)
[2020-01-30] MEDS ORDERED: LANSOPRAZOLE 30 MG SOLTAB PO SCH (21:00)
[2020-01-30] MEDS ORDERED: OMEPRAZOLE 20 MG PO SCH (21:00)
[2020-01-30] MEDS ORDERED: CARBIDOPA/LEVODOPA 50/200MG EXT REL TAB PO SCH (21:00)
[2020-01-31] MEDS: NITROGLYCERIN 2% OINTMENT 30GM TUBE EXT SCH ×2 (04:26→04:31)
[2020-01-31] MEDS: ACETAMINOPHEN 325 MG TAB PO PRN (05:41)
[2020-01-31 06:02] LABS: Hematocrit (blood only) 40.3 % (37-47); Hemoglobin 13.7 g/dL (12.0-16.0); Mean Corpuscular Hemoglobin 32.2 pg (25-34); Mean Corpuscular Volume 94.8 fL (80-100); Mean Platelet Volume 13.3 fL (7.4-10.4); Platelet Count 226 K/uL (130-400); RDW Coefficient of Variation 14.6 % (11.5-14.5); RDW Standard Deviation 50.9 fL (36.4-46.3); Red Blood Count 4.25 M/uL (4.2-5.4); White Blood Count 10.61 K/uL (4.8-10.8)
--- NOTE | 2020-01-31 06:14 | Electrocardiogram Report ---
Test Reason : Blood Pressure : / mmHG Vent. Rate : 062 BPM Atrial Rate : 062 BPM P-R Int : 168 ms QRS Dur : 082 ms QT Int : 418 ms P-R-T Axes : 022 045 023 degrees QTc Int : 424 ms Normal sinus rhythm Nonspecific ST abnormality Abnormal ECG When compared with ECG of 20-AUG-2019 13:38, No significant change was found Confirmed by Shelton Eckert ([id number]) on 01/31/2020 6:14:31 AM Referred By: ED Confirmed By:Shelton Eckert
[2020-01-31 06:34] LABS: BUN Creatinine Ratio 17.3 (10-20); Blood Urea Nitrogen 13 mg/dl (7-18); Calcium 8.2 mg/dl (8.5-10.1); Carbon Dioxide 27 mmol/L (21-32); Chloride 110 mmol/L (98-107); Creatinine Clr Calc Pharmacy 94.6 ml/min; Glucose 85 mg/dl (70-99); Potassium 3.7 mmol/L (3.5-5.1); Sodium 141 mmol/L (136-145)
[2020-01-31 06:37] LABS: Estimated Average Glucose 120 mg/dl; Hemoglobin A1C 5.8 % (4.5-5.6)
[2020-01-31 06:40] LABS: Chol HDL Ratio 4; Cholesterol 188 mg/dl (0-200); HDL Cholesterol 54 mg/dl; LDL Cholesterol Calculated 114 mg/dl; Triglycerides 98 mg/dl (0-150); Troponin I < 0.015 ng/ml (0-0.045); VLDL Cholesterol 20 mg/dl
[2020-01-31] MEDS: CARBIDOPA/LEVODOPA 50/200MG EXT REL TAB PO SCH ×2 (08:19→12:17)
[2020-01-31] MEDS ORDERED: ASPIRIN 81 MG ECTAB PO SCH ×2 (09:00)
[2020-01-31] MEDS ORDERED: MULTIVITAMIN TAB PO SCH ×2 (09:00)
[2020-01-31] MEDS ORDERED: OPTIRAY 320 125ml IV ONE (13:51)
--- NOTE | 2020-01-31 14:11 | CT Scan Report ---
CT ANGIOGRAM OF THE CHEST CLINICAL HISTORY: Atypical chest pain. COMPARISON STUDY: Chest x-ray dated 01/30/2020. Chest CT dated 11/17/2015. TECHNIQUE: Following the IV administration of 120 cc of Optiray 320, CT angiogram of the chest was pe rformed from the upper abdomen to the thoracic inlet utilizing the pulmonary embolus protocol. Images are reviewed in the axial, sagittal, and coronal planes. 3-D MIPS images are created and assessed. I V contrast was administered without complication. A dose lowering technique was utilized adhering to the principles of ALARA. CT DOSE: 483.71 mGycm FINDINGS: Thyroid: Imaged portions of the thyroid gland are normal in size and attenuation. Thoracic aorta: The thoracic aorta is normal in caliber and demonstrates standard 3-vessel arch anato my. No dissection is seen. Pulmonary vasculature: The pulmonary trunk is normal in caliber. There are no filling defects identif ied in main, lobar, or segmental pulmonary branches to suggest pulmonary embolus. Heart: The heart is top normal in size and without pericardial effusion. Lungs and pleural spaces: The lungs and pleural spaces are clear noting dependent atelectasis. The tr achea and central airways are patent. Mediastinum: There is no mediastinal lymphadenopathy. Lynn: Clear. Axillae: There is no axillary lymphadenopathy. Upper abdomen: A normal spleen is not identified. Small nodules in the left upper quadrant below the diaphragm measuring up to 1.4 cm likely represent splenules. A small hiatal hernia is noted. Skeletal structures: The skeletal structures are osteopenic. No lytic or blastic bony lesions are see n. IMPRESSION: 1. There is no evidence of pulmonary embolus in the main, lobar, or segmental pulmonary arteries. 2. There is no airspace consolidation or pleural effusion. ACT 112: Negative or not required by law. Electronically signed by: Elroy Solorio M.D. 01/31/2020 2:10 PM
--- NOTE | 2020-01-31 16:03 | Discharge Summary ---
Date of Service date of admission - January 30, 2020 date of discharge - January 31, 2020 Admission HPI Per Admitting Provider Irina Dykes is a 54-year-old female with Parkinson disease who presents to the ER with chest pain. Started 2 days ago. Slightly on right anterior chest. Not f ully resolved since but would wax and wane. Moved to left side and now radiating to back and left arm. Exertional. Non-pleuritic/positional/related to food. No nausea, vomiting, diaphoresis (small hot flash this morning), shortness of breath. Took x2 PO simethicone last night with no effect. Using albuterol inhaler this weekend due to wheezing and non-productive cough but she does not related the chest pain to this and no difference with her albuterol inhaler. Smoked 10 years ago. 15 years @ 5-6 cigarettes/day. Parents in good health. No siblings. Grandparents of heart attacks in their 70s. History of GERD and ulcers but this feels different. Previously on ranitidine as needed, stopped taking this when it was taken off the market. Now regularly taking omeprazole 20mg PO daily which controls her symptoms. In the ER CXR showed no acute cardiopulmonary findings, EKG was unremarkable for acute coronary syndrome, d-dimer and initial troponin negative. He was given 324 mg p.o. aspirin and 0.4 mg SL nitroglycerin with relief of her pain. COVID- 19 testing performed due to her occupation in [employer] which was subsequently negative. She was referred to the medicine team for consideration of admission for chest pain rule out ND.w Principal Diagnosis chest pain - ACS ruled out, PE ruled out Discharge Exam Constitutional well developed, well nourished and + obese; no acute distress and no altered mental status ENMT external ear and nose normal, oropharynx normal Respiratory normal respiratory effort, lungs clear to auscultation Cardiovascular RRR, no murmur, no edema Heart Sounds: normal S1 and normal S2 Vessels: posterior tibial pulses present and dorsalis pedis pulses present; no JVD Chest (Breasts) Additional Comments: no reproducible chest wall pain to palpation Gastrointestinal (Abdomen) normal bowel sounds, soft, nontender, no hepatosplenomegaly Skin no rashes, warm and dry Psychiatric A+Ox3, euthymic affect Discharge Data Allergies Allergy/AdvReac Type Severity Reaction Status Date / Time prochlorperazine Allergy Mild CRAWLING Verified 01/30/20 09:59 SKIN AND AGGITATION bee venom protein (honey bee) Allergy Unknown SHORTNESS Verified 01/30/20 09:59 OF BREATH Ordered Studies 01/31/20 13:12 CT angio chest PE protocol Routine -- no PE, no infiltrates, no masses. Exercise stress echocardiogram - * no ischemia at 88% of MPHR * EF 55-60% * no diastolic dysfunction * normal valve function * normal wall motion Hospital Course (1) Atypical chest pain: Serial troponins negative. Telemetry normal. Stress echocardiogram without ischemia. Normal LV function and normal valve function. CTA chest without PE or other findings. 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 She had no findings on imaging or exam to suggest bronchitis or active asthma. Etiology of pain uncertain. There was no reproducibility on exam to suggest musculoskeletal etiology. Could be GI in origin. Recommended she increase her PPI to 40mg daily from 20mg. If GERD symptoms persist then outpatient GI consultation. Consider biliary work-up if pain recurs/persists (RUQ u/s, etc). (2) Parkinson disease: Diagnosed 2011. Continue Sinemet ER 50/200 3 times daily. Continue Nourianz 20 mg p.o. daily (3) Hyperlipoproteinemia: LDL 114 on lipid profile. Dietary/lifestyle changes recommended. (4) Prediabetes: Hemoglobin a1c 5.8%. Discussed diagnosis. Gave handout. Lifestyle changes advised. f/u with PCP for once-twice yearly a1c checks. Total Time Total Time Spent Total Time Spent (In Minutes): 30 Total Time Includes: Examination of the Patient, Discharge Planning, Medication Reconciliation and Communication With Other Providers Discharge Plan Discharge Items Patient Disposition: Home - Self-Care Reason For Visit: CHEST PAIN Discharge Diagnosis: Chest pain - heart attack ruled out; NORMAL stress test. CAT scan NEGATIVE for blood clots, pneumonia, or signs of COVID-19. COVID-19 swab also negative. Activity: Resume your previous activity Non-emergency contact: Primary Care Provider Call non-emergency contact if: you have any medication questions, your symptoms worsen, your pain is not controlled, your pain is worsening, your pain is unusual for you, your pain is concerning for you and you have a fever Follow-up/Referrals: Erin Rodriguez MD [Primary Care Provider] - 02/05/20 10:00 am (see Dr Rodriguez within 1 week ) Diet: Heart Healthy Addtl Attending Provider Instructions: You were admitted to the hospital because of chest pain and upper back pain. Your blood work for the heart was negative -- that is, no evidence of heart attack was found. Your heart monitoring (telemetry) was normal. COVID-19 testing was negative. Your CAT scan of the lungs was normal. You underwent a stress test and this was normal suggesting your chest pain was NOT from your heart. Your echocardiogram was normal. I am not fully certain if the pain was esophageal/reflux in origin but very well could be. Thus, please INCREASE your omeprazole to 40mg once daily. New script sent to [facility] for you. I doubt that the pain is musculoskeletal in origin. If your symptoms persist please contact your family doctor to discuss additional testing and/or referral (GI referral, gall bladder testing, endoscopy, etc). Finally, your "LDL" (bad cholesterol) was 114. Your hemoglobin a1c was 5.8% -- please see dedicated handout. Return to [facility] if - * you have fevers over 100 degrees * you have recurrent chest pains * you have shortness of breath * any other concerns Pending Studies at Discharge: No Stand-Alone Forms: My [facility], Work/School Release (Inpt), Smoking Cessation Medications and DC Order Prescriptions: New omeprazole 40 mg capsule,delayed release(DR/EC) 40 mg PO DAILY Qty: 30 RF: 5 Continued albuterol sulfate [Ventolin HFA] 90 mcg/actuation HFA aerosol inhaler See Rx Instructions INH Q6H PRN (Reason: Shortness Of Breath) Qty: 18 RF: 2 ondansetron 8 mg tablet,disintegrating 8 mg PO Q8H PRN (Reason: nausea and vomiting) Qty: 20 RF: 0 Nourianz 20 mg tablet 20 mg PO DAILY Qty: 30 RF: 3 carbidopa-levodopa 50-200 mg tablet extended release 1 tab PO TID Qty: 270 RF: 3 multivitamin Tablet 1 tab PO QAM RF: 0 ibuprofen [Advil] 200 mg Tablet 800 mg PO DAILY PRN (Reason: Pain) RF: 0 Discontinued omeprazole 20 mg Tablet,Disintegrat, Delay Rel 20 mg PO HS RF: 0 Discharge Orders: Discharge Order (Routine); Ordered 01/31/20 Ordered By: Christiano Bui/Other Patient Handouts: A1C, Lipid Panel Admission Data Admit Date/Time: 01/30/20 14:21 Attending Provider: Christiano Jones Admit Provider: Christiano Jones Primary Care Provider: Erin Rodriguez Other Providers: Christiano Jones Other Interventions: Discharge Summary Assessment (RN) Last Done: 01/31/20 16:00 Coding Level of Care Code 50228 OBS Care - Discharge Diagnoses Atypical chest pain R07.89 Parkinson disease G20 Hyperlipoproteinemia E78.5 Prediabetes R73.03
--- NOTE | 2020-01-31 19:59 | XCELERA ---
[id number]
== END 2020-01-31 16:23 | disposition home or self-care (01) ==
LOC: 2N 08:36 → ED 08:36

== ENCOUNTER 2023-03-28 18:51 | Inpatient (IN) ==
[2023-03-28] MEDS ORDERED: ALBUT/IPRATROP 3MG/0.5MG NEB 3 ML VIAL NEB ONE (19:32)
--- NOTE | 2023-03-28 19:33 | Emergency Department Note ---
Impression & Plan COVID-19, Acute hypoxemic respiratory failure, Cough, Acute dyspnea ED Provider Note HISTORY OF PRESENT ILLNESS: Patient is a 58-year-old female presenting with cough and shortness of breath. Patient reports that symptoms started 5 days ago. She started on a prednisone taper at that time and has been using albuterol treatments with little relief in symptoms. Reports that she tested for COVID 5 days ago that was negative, but tested positive yesterday. Reports her shortness of breath and increased work of breathing has significantly worsened and she feels like she cannot catch her breath. She is been monitoring her pulse ox levels at home and notes that today that her saturations were in the low 90s and in the upper 80s. As the evening progressed, her sats were in the mid 80s, prompting her to present to the ER. Denies any DVT or PE history. She is not on any anticoagulation. Denies any significant chest pain. Denies any fevers. ROS: as above PHYSICAL EXAM: Constitutional: Patient appears in no acute distress. HENT: Head: Normocephalic and atraumatic. Eyes: EOMI, PERRL Mouth/Throat: Mucous membranes moist. Neck: Trachea midline. Neck supple. Cardiovascular: RRR, No murmurs, rubs or gallops. Intact distal pulses. Pulmonary/Chest: No respiratory distress. Breath sounds clear and equal bilaterally. No wheezes or rales. Abdominal: Abdomen soft, no tenderness, rebound or guarding. Musculoskeletal: No edema, tenderness or deformity noted. Skin: Warm and dry. No rash, erythema, pallor or cyanosis Psychiatric: Appropriate mood and affect for situation. Neurological: Alert and keenly responsive. CN II-XII grossly intact, moving all extremities equally and fully. MDM: - Vitals signs stable. - History obtained via patient. Patient presents with cough and shortness of breath. Patient reports symptoms started 5 days ago. Has been on prednisone since that time. She been using albuterol treatments at home with little relief in symptoms. She tested positive for COVID as of yesterday. Reports shortness of breath and work of breathing has increased. She also has had low pulse ox levels at home. Denies any chest pain. Denies any DVT or PE history - Chronic conditions affecting care: Parkinson's disease; GERD - Differential diagnoses include, but are not limited to: Congestive heart failure; acute coronary syndrome; COPD/asthma exacerbation; pulmonary edema; pulmonary embolism; pneumonia; pneumothorax; viral syndrome - Order placed for continuous cardiac monitoring. At this time, monitor showed rate of 91 bpm with normal sinus rhythm, per my interpretation. - External medical records reviewed. - EKG interpreted by myself showed normal sinus rhythm. Rate 68 bpm. QTc 440. No acute ischemic changes - Laboratory workup interpreted by myself showed slight leukocytosis (WBC 10.98); stable electrolytes; normal troponin; normal BNP - CXR negative for pneumonia, per my interpretation - Patient given hour long duoneb treatment. However, still complaining of shortness of breath. Her oxygen saturations dipped into the upper 80s and she was started on supplemental oxygen. Was given 125 mg of IV Solu-Medrol. - CT PE negative for PE but showed possible left lower lobe pneumonia versus inflammatory etiology - Given new oxygen requirement, will admit to hospital. - Discussion was had with patient care technician about patient's case and need for admission. - Hospitalist, Dr. Velasquez, consulted for admission - Patient admitted to [facility] for further evaluation and management. ASSESSMENT AND PLAN: Diagnosis: COVID-19; acute hypoxic respiratory failure; cough; dyspnea Plan: admit Past Med/Surg History Medical History Prediabetes History of basal cell carcinoma Obesity Parkinson disease GERD (gastroesophageal reflux disease) Asthma Parkinsons disease Diverticulosis of colon Surgical History History of basal cell carcinoma (BCC) excision History of anesthesia reaction History of esophagogastroduodenoscopy (EGD) Nausea and vomiting after administration of anesthetic agent History of laparoscopy Hx of hand surgery History of ERCP History of colonoscopy S/P tubal ligation S/P wisdom tooth extraction S/P tonsillectomy and adenoidectomy S/P splenectomy Family History Mother Hypertension Essential tremor Unknown Heart disease Breast cancer Hypertension Son Schizophrenia Father TIA (transient ischemic attack) New onset a-fib Denies family history of Ovarian cancer Prostate cancer Myocardial infarction Colorectal cancer Social History Smoking Status: Never smoker Tobacco Type: Cigarettes Age Started Using Tobacco: 16; Age Quit Using Tobacco: 43; packs per day: 0.5; Second Hand Exposure: No; Do You Dip or Chew Tobacco: No; Hx Alcohol Use: Yes Alcohol type: beer and wine Alcohol Intake Frequency: Monthly or Less Hx Substance Use: No Preferred Language: P[place] Communication Ability: Effective Visual Impairment: No Limitations Hearing Ability: Normal 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 Beliefs That Will Affect Care: None marital status: Current Living Situation: Spouse current occupational status: employed current occupation: RN How many Children do You have: 5 Feels Safe at Home: Yes Childhood Exposure to Second-Hand Smoke: Yes Diet: regular Dental Care, Regularly: No Physical Activity Frequency: 3-4 Times per Week Seatbelt Use: always Sunscreen Use: Yes Assistive Devices: Glasses Allergies Allergies Allergy/AdvReac Type Severity Reaction Status Date / Time bee venom protein (honey bee) Allergy Unknown SHORTNESS Verified 03/24/23 10:42 OF BREATH No Known Drug Allergies Allergy Verified 03/24/23 10:42 Home Meds Home Medications Medication Instructions Recorded Confirmed ibuprofen 200 mg tablet (Advil) 800 mg PO DAILY PRN Pain 08/20/19 03/24/23 multivitamin 1 tab PO QAM 08/20/19 03/24/23 omeprazole 40 mg capsule,delayed 40 mg PO QPM 02/17/22 03/24/23 release valacyclovir 1 gram tablet 1,000 mg PO Q8H PRN .Breakouts 04/29/22 03/24/23 (Valtrex) ketoconazole 2 % topical cream 1 applic topical BID PRN .. 10/03/22 03/24/23 Previous Rx's Medication Instructions Recorded ketoconazole 2 % shampoo 1 applic topical .COMPLEX #120 mL 09/09/22 carbidopa ER 50 mg-levodopa 200 mg 1 tab PO TID 90 days #270 tabs 10/04/22 tablet,extended release istradefylline 20 mg tablet 20 mg PO QAM #90 tabs 10/13/22 (Nourianz) metoprolol succinate 25 mg 12.5 mg (1/2 x 25 mg) PO DAILY #45 01/13/23 tablet,extended release 24 hr tabs ondansetron 8 mg disintegrating 8 mg PO Q8H PRN nausea and 03/04/23 tablet vomiting #20 tabs promethazine 25 mg tablet 25 mg PO Q6H PRN nausea and 03/07/23 vomiting #20 tabs albuterol sulfate 90 mcg/actuation See Rx Instructions inhalation Q6H 03/24/23 aerosol inhaler (Ventolin HFA) PRN Shortness Of Breath #18 grams bupropion HCl 150 mg 24 hr tablet, 150 mg PO QAM #30 tabs 03/24/23 extended release ipratropium 0.5 mg-albuterol 3 mg 3 ml inhalation Q6H PRN wheezing 03/24/23 (2.5 mg base)/3 mL nebulization #90 mL soln nebulizers (Compact Ultrasonic #1 ea 03/24/23 Nebulizer) prednisone 10 mg tablet See Rx Instructions PO DAILY #30 03/24/23 tabs Results & Data (ED) Vital Signs Vital Signs - 24 hr 03/28/23 18:57 03/28/23 19:29 03/28/23 19:30 Temperature 36.1 C L Temperature Source Temporal Artery Scan Pulse Rate 87 102 H Pulse Rate [Apical] Respiratory Rate 20 Respiratory Effort / Characteristics Respiratory Depth Normal Blood Pressure 135/90 Blood Pressure [Right Arm] Blood Pressure Mean 105 Blood Pressure Mean [Right Arm] Pulse Oximetry 95 Oxygen Delivery Method Room Air Room Air Oxygen Flow Rate Sepsis Recent Fever Within 48 Hours No Sepsis New/Unexplained Change in Mental Status No Sepsis Action Taken by Nursing No Action Required Oxygen Flow Rate - Titration Pulse Oximetry Post Tiitration 03/28/23 19:30 03/28/23 19:30 03/28/23 20:00 Temperature Temperature Source Pulse Rate Pulse Rate [Apical] 82 86 Respiratory Rate 22 18 Respiratory Effort / Characteristics Spontaneous Respiratory Depth Blood Pressure Blood Pressure [Right Arm] Blood Pressure Mean Blood Pressure Mean [Right Arm] Pulse Oximetry 94 95 Oxygen Delivery Method Room Air Room Air Room Air Oxygen Flow Rate Sepsis Recent Fever Within 48 Hours Sepsis New/Unexplained Change in Mental Status Sepsis Action Taken by Nursing Oxygen Flow Rate - Titration Pulse Oximetry Post Tiitration 03/28/23 20:42 03/28/23 21:51 Temperature Temperature Source Pulse Rate Pulse Rate [Apical] 91 H Respiratory Rate 23 Respiratory Effort / Characteristics Respiratory Depth Blood Pressure Blood Pressure [Right Arm] 120/78 Blood Pressure Mean Blood Pressure Mean [Right Arm] 92 Pulse Oximetry 95 88 L Oxygen Delivery Method Nebulizer Nasal Cannula Oxygen Flow Rate 0 Sepsis Recent Fever Within 48 Hours Sepsis New/Unexplained Change in Mental Status Sepsis Action Taken by Nursing Oxygen Flow Rate - Titration 2 Pulse Oximetry Post Tiitration 94 Laboratory Data 03/28/23 19:54 03/28/23 19:54 Lab Results 03/28/23 Range/Units 19:54 WBC 10.98 H (4.8-10.8) K/ul RBC 4.41 (4.20-5.40) M/uL Hgb 14.3 (12.0-16.0) g/dl Hct 41.0 (37.0-47.0) % MCV 93.0 (80.0-100.0) fL MCH 32.4 (25.0-34.0) pg MCHC 34.9 (32.0-36.0) g/dL RDW Std Deviation 51.8 H (36.4-46.3) fL RDW Coeff of Klaus 15.2 H (11.5-14.5) % Plt Count 225 (130-400) K/uL MPV 14.1 H (9.4-12.4) fL Immature Gran % (Auto) 0.5 % Neut % (Auto) 83.7 % Lymph % (Auto) 11.7 % [place] % (Auto) 3.7 % Eos % (Auto) 0.0 % Baso % (Auto) 0.4 % Neut # (Auto) 9.18 H (1.40-6.50) K/uL Lymph # (Auto) 1.29 (1.20-3.40) K/uL [place] # (Auto) 0.41 (0.11-0.59) K/uL Eos # (Auto) 0.00 (0.00-0.50) K/uL Baso # (Auto) 0.04 (0.00-0.20) K/uL Immature Gran # (Auto) 0.06 (0.01-0.20) K/uL Target Cells 1+ Echinocytes 1+ PT 10.6 (9.0-12.0) Seconds INR 1.0 (0.9-1.1) VBG pH 7.45 H (7.36-7.41) VBG pCO2 38 (38-50) mmHg VBG pO2 54 mmHg VBG HCO3 26 mmol/L VBG O2 Saturation 87.0 % VBG Base Excess 2.4 mEq/L Sodium 140 (136-145) mmol/L Potassium 3.8 (3.5-5.1) mmol/L Chloride 107 (98-107) mmol/L Carbon Dioxide 23 (21-32) mmol/L Anion Gap 10 (3-11) BUN 15 (6-23) mg/dl Creatinine 0.78 (0.6-1.2) mg/dl Est Cr Clr Drug Dosing 82.3 ml/min Est GFR ( Amer) 97.8 ml/min Est GFR (Non-Af Amer) 84.4 ml/min BUN/Creatinine Ratio 19.2 (10-20) Glucose 140 H (70-99(Fasting)) mg/dl Calcium 9.3 (8.6-10.3) mg/dl Magnesium 1.8 (1.7-2.4) mg/dl Total Bilirubin 0.4 (0.2-1.0) mg/dl AST 22 (13-39) U/L ALT 22 (7-52) U/L Alkaline Phosphatase 82 (34-104) U/L Troponin I High Sens 3.6 (0-14) pg/ml B-Natriuretic Peptide 44 (0-100) pg/ml Total Protein 7.3 (6.0-8.3) gm/dl Albumin 4.2 (3.4-5.0) gm/dl Globulin 3.1 (2.5-4.0) gm/dl Albumin/Globulin Ratio 1.4 (0.9-2) Administered Medications Discontinued Medications Albuterol (Albut/Ipratrop 3mg/0.5mg Neb 3 Ml Vial) 12 ml NEB ONE ONE; Protocol Stop: 03/28/23 19:33 Last Admin: 03/28/23 20:00 Dose: 12 ml Documented By: VINCENT Ioversol (Optiray 320 125ml) 119 ml IV ONCE ONE Stop: 03/28/23 22:38 Last Admin: 03/28/23 22:37 Dose: 119 ml Documented By: KARLENE Methylprednisolone (Methylprednisolone 125 Mg/2 Ml Vial) 125 mg IV NOW STA Stop: 03/28/23 21:46 Last Admin: 03/28/23 21:55 Dose: 125 mg Documented By: MARSHA Imaging Data Radiologist's Impression: Chest X-Ray 03/28/23 19:17 XR chest 1V portable CLINICAL HISTORY: Dyspnea. COMPARISON STUDY: Chest radiograph July 27, 2021. Chest radiograph March 24, 2023. FINDINGS: Lung volumes are normal. Lungs are clear. There is no pneumothorax or pleural effusion. Cardiac size is stable. Mediastinal contours are normal. There is no evidence for pulmonary edema. IMPRESSION: No acute cardiopulmonary findings. ACT 112: Negative or not required by law. Electronically signed by: Volodymyr Peoples M.D. 03/28/2023 7:43 PM Chest CTA 03/28/23 21:45 Exam(s): CTA CHEST IV Amt: 119ML OPTIRAY 320 EXAM: CT Angiography Chest With Intravenous Contrast CLINICAL HISTORY: Reason for exam: PE. TECHNIQUE: Axial computed tomographic angiography images of the chest with intravenous contrast. CTDI is 28.03 mGy and DLP is 793 mGy-cm. Automated exposure control was utilized for the study. A dose lowering technique was utilized adhering to the principles of ALARA. MIP reconstructed images were created and reviewed. COMPARISON: 07/27/2021 FINDINGS: Pulmonary arteries: Unremarkable. No pulmonary embolism. Aorta: No acute findings. No thoracic aortic aneurysm. Lungs: Linear atelectasis within both lower lobes unchanged from prior exam. More confluent opacity within the right lower lobe likely etiology is new since prior study. Pleural space: Unremarkable. No significant effusion. No pneumothorax. Heart: Unremarkable. No cardiomegaly. No significant pericardial effusion. No evidence of RV dysfunction. Bones/joints: No acute fracture. No dislocation. Soft tissues: Unremarkable. Lymph nodes: Unremarkable. No enlarged lymph nodes. IMPRESSION: 1. Right lower lobe infiltrate likely of infectious or inflammatory etiology 2. No pulmonary embolus Electronically signed by: Lincoln Khalil MD 03/28/23 23:07 PM Discharge Plan Visit Data Chief Complaint: Shortness of Breath/Dyspnea Stated Complaint: SHORTNESS OF BREATH, LOW O2 SATS, COVID+ ED Provider: Zamzam Bartlett Discharge Problem: COVID-19, Acute hypoxemic respiratory failure, Cough, Acute dyspnea Forms Stand Alone Forms: [facility] Prescriptions Prescriptions: No Action promethazine 25 mg tablet 25 mg PO Q6H PRN (Reason: nausea and vomiting) Qty: 20 0RF ketoconazole 2 % shampoo 1 applic topical .COMPLEX Qty: 120 1RF Rx Instructions: 1 applic topical to the scalp 2-3 times a week. Allow to sit on the scalp for 5 minutes before rinsing. ondansetron 8 mg tablet,disintegrating 8 mg PO Q8H PRN (Reason: nausea and vomiting) Qty: 20 0RF Nourianz 20 mg tablet 20 mg PO QAM Qty: 90 3RF carbidopa-levodopa 50-200 mg tablet extended release 1 tab PO TID 90 Days Qty: 270 1RF Rx Instructions: divide evenly over waking hours valacyclovir [Valtrex] 1 gram tablet 1,000 mg PO Q8H PRN (Reason: .Breakouts) metoprolol succinate 25 mg tablet extended release 24 hr 12.5 mg PO DAILY Qty: 45 3RF albuterol sulfate [Ventolin HFA] 90 mcg/actuation HFA aerosol inhaler See Rx Instructions INH Q6H PRN (Reason: Shortness Of Breath) Qty: 18 2RF Rx Instructions: 1-2 puffs inhalation every 6 hours PRN; ipratropium-albuterol 0.5 mg-3 mg(2.5 mg base)/3 mL solution for nebulization 3 ml inhalation Q6H PRN (Reason: wheezing) Qty: 90 1RF bupropion HCl 150 mg tablet extended release 24 hr 150 mg PO QAM Qty: 30 5RF prednisone 10 mg tablet See Rx Instructions PO DAILY Qty: 30 0RF Rx Instructions: 4 daily for 3 days, 3 daily for 3 days, 2 daily for three days, 1 daily for 3 days. PO DAILY; (DME) nebulizers [Compact Ultrasonic Nebulizer] [facility] [place] See Rx Instructions .ROUTE .MEDSUPPLY Qty: 1 0RF Rx Instructions: Use as directed to administer prescribed DuoNeb multivitamin Tablet 1 tab PO QAM ibuprofen [Advil] 200 mg Tablet 800 mg PO DAILY PRN (Reason: Pain) omeprazole 40 mg capsule,delayed release(DR/EC) 40 mg PO QPM ketoconazole 2 % cream 1 applic topical BID PRN (Reason: ..) Referrals Referrals: Erin Rodriguez MD [Primary Care Provider] -
--- NOTE | 2023-03-28 19:45 | XRay Report ---
XR chest 1V portable CLINICAL HISTORY: Dyspnea. COMPARISON STUDY: Chest radiograph July 27, 2021. Chest radiograph March 24, 2023. FINDINGS: Lung volumes are normal. Lungs are clear. There is no pneumothorax or pleural effusion. Car diac size is stable. Mediastinal contours are normal. There is no evidence for pulmonary edema. IMPRESSION: No acute cardiopulmonary findings. ACT 112: Negative or not required by law. Electronically signed by: Volodymyr Peoples M.D. 03/28/2023 7:43 PM
[2023-03-28 20:07] LABS: Base Excess VBG 2.4 mEq/L; HCO3 VBG 26 mmol/L; PCO2 VBG 38 mmHg (38-50); PO2 VBG 54 mmHg; pH VBG 7.45 (7.36-7.41)
[2023-03-28 20:31] LABS: Alanine Aminotransferase 22 U/L (7-52); Albumin Globulin Ratio 1.4 (0.9-2); Albumin Level 4.2 gm/dl (3.4-5.0); Alkaline Phosphatase 82 U/L (34-104); Anion Gap 10 (3-11); Aspartate Aminotransferase 22 U/L (13-39); BUN Creatinine Ratio 19.2 (10-20); Bilirubin,Total 0.4 mg/dl (0.2-1.0); Blood Urea Nitrogen 15 mg/dl (6-23); Calcium 9.3 mg/dl (8.6-10.3); Carbon Dioxide 23 mmol/L (21-32); Chloride 107 mmol/L (98-107); Creatinine Clr Calc Pharmacy 82.3 ml/min; Est GFR (African American) 97.8 ml/min; Est GFR (Non-African American) 84.4 ml/min; Globulin 3.1 gm/dl (2.5-4.0); Glucose 140 mg/dl (70-99(Fasting)); Magnesium 1.8 mg/dl (1.7-2.4); Potassium 3.8 mmol/L (3.5-5.1); Sodium 140 mmol/L (136-145); Total Protein 7.3 gm/dl (6.0-8.3)
[2023-03-28 20:37] LABS: Troponin I High Sensitivity 3.6 pg/ml (0-14)
[2023-03-28 20:44] LABS: Prothrombin Time 10.6 Seconds (9.0-12.0)
[2023-03-28 20:49] LABS: Hemoglobin 14.3 g/dl (12.0-16.0); Mean Corpuscular Hemoglobin 32.4 pg (25.0-34.0); Mean Corpuscular Hgb Conc 34.9 g/dL (32.0-36.0); Mean Platelet Volume 14.1 fL (9.4-12.4); Platelet Count 225 K/uL (130-400); RDW Coefficient of Variation 15.2 % (11.5-14.5); RDW Standard Deviation 51.8 fL (36.4-46.3); Red Blood Count 4.41 M/uL (4.20-5.40); White Blood Count 10.98 K/ul (4.8-10.8)
[2023-03-28 21:32] LABS: Basophils # (auto) 0.04 K/uL (0.00-0.20); Basophils % (auto) 0.4 %; Echinocytes 1+; Immature Granulocytes # (auto) 0.06 K/uL (0.01-0.20); Immature Granulocytes % (auto) 0.5 %; Lymphocytes # (auto) 1.29 K/uL (1.20-3.40); Lymphocytes % (auto) 11.7 %; Monocytes # (auto) 0.41 K/uL (0.11-0.59); Monocytes % (auto) 3.7 %; Neutrophils # (auto) 9.18 K/uL (1.40-6.50); Neutrophils % (auto) 83.7 %; Target Cells 1+
[2023-03-28] MEDS ORDERED: methylPREDNISolone 125 MG/2 ML VIAL IV STA (21:45)
[2023-03-28] MEDS ORDERED: OPTIRAY 320 125ml IV ONE (22:37)
--- NOTE | 2023-03-28 23:09 | CT Scan Report ---
Exam(s): CTA CHEST IV Amt: 119ML OPTIRAY 320 EXAM: CT Angiography Chest With Intravenous Contrast CLINICAL HISTORY: Reason for exam: PE. TECHNIQUE: Axial computed tomographic angiography images of the chest with intravenous contrast. CTDI is 28.03 mGy and DLP is 793 mGy-cm. Automated exposure control was utilized for the study. A dose lowering technique was utilized adhering to the principles of ALARA. MIP reconstructed images were created and reviewed. COMPARISON: 07/27/2021 FINDINGS: Pulmonary arteries: Unremarkable. No pulmonary embolism. Aorta: No acute findings. No thoracic aortic aneurysm. Lungs: Linear atelectasis within both lower lobes unchanged from prior exam. More confluent opacity within the right lower lobe likely etiology is new since prior study. Pleural space: Unremarkable. No significant effusion. No pneumothorax. Heart: Unremarkable. No cardiomegaly. No significant pericardial effusion. No evidence of RV dysfunction. Bones/joints: No acute fracture. No dislocation. Soft tissues: Unremarkable. Lymph nodes: Unremarkable. No enlarged lymph nodes. IMPRESSION: 1. Right lower lobe infiltrate likely of infectious or inflammatory etiology 2. No pulmonary embolus Electronically signed by: Lincoln Khalil MD 03/28/23 23:07 PM
[2023-03-28 23:59] LABS: Appearance Urine Clear (Clear); Bilirubin Urine Negative (Negative); Blood Urine Negative (Negative); Color Urine Yellow; Glucose Urine UA Negative (Negative); Ketones Urine Negative (Negative); Leukocyte Esterase Urine Negative (Negative); Nitrite Urine Negative (Negative); Protein Urine Negative (Negative); Specific Gravity Urine > 1.045 (1.000-1.030); Urobilinogen Urine Negative (Negative); pH Urine 5.5 (4.5-7.5)
--- NOTE | 2023-03-29 00:18 | History & Physical Report ---
Date of Service March 29, 2023 Assessment & Plan (1) COVID-19: Plan: 58yo female presenting with 12 days of progressive respiratory symptoms - cough, SOB and recent episodes of hypoxia with saturations 87-88% at home. Patient has been on a Prednisone taper at home since 03/24/23 and has been using her inhalers as directed with no improvement. After several negative Covid tests (including a lab PCR Covid/Influenza/RSV test on 03/24/23) she tested POSITIVE on 03/27/23. Patient now presenting with acute hypoxic respiratory failure - saturation 89% on room air. Improved with supplemental O2. Presently 93% on 3L. No home oxygen use. Unclear if patient's symptoms ongoing since 03/17/23 were secondary to Covid - unlikely that she would have three negative tests, including a PCR test. Possibly had another respiratory virus with more recent Covid-19 infection. -Admit to medical -Maintain isolation -Dexamethasone 6mg IV daily -Remdesivir per protocol -Supplemental O2 as needed to maintain O2 saturation 94% -DuoNebs PRN -Albuterol PRN -Tessalon PRN -Tylenol PRN (2) Pneumonia: Plan: RLL infiltrate noted on CT of the chest. Patient with crackles present on exam. Uncertain if this represents true PNA. Mild elevation of WBC count could be explained by recent steroid use. Procalcitonin is NEGATIVE. Patient is asplenic therefore is at high risk for sepsis secondary to streptococcal PNA. She denies fever, chills, sweats. -Empiric antibiotics for CAP with Ceftriaxone and Azithromycin -Monitor for sepsis (3) Parkinsonism: Plan: Chronic. Stable -Continue home carbidopa-levodopa (4) Depression with anxiety: Plan: Chronic. Stable -Continue home Wellbutrin History of Present Illness Chief Complaint: cough, SOB Primary Care Provider: Erin Rodriguez MD Irina Dykes is a pleasant 58yo female with history of GERD, Parkinsonism and asplenia presenting from home with Covid-19 infection, cough and hypoxia. Patient reports that her symptoms started on 03/17/23 as a dry cough. She did have multiple close contacts that tested POSITIVE for Covid-19. She did two home tests which were both NEGATIVE. Her symptoms persisted. On 03/23/23 she noted some increased shortness of breath with ambulation. She was seen by her PCP on 03/24/23. She had an RSV/Covid/Influenza test that was performed and NEGATIVE. She was diagnosed with acute exacerbation of asthma and was started on a Prednisone taper and instructed to continue with her home DuoNebs and Ventolin. On 03/25 - 03/26 she felt acutely worse with increased cough and shortness of breath. She also began having episodes of decreased saturations into the high 80's. She did another home Covid test on 03/27/23 and it was found to be POSITIVE. She reports ongoing shortness of breath with episodes of hypoxia, saturations of 87-88% at home. Ongoing dry cough and chest tightness. Denies chest pain, fever, chills, myalgias. No abdominal pain, nausea, vomiting or diarrhea. No additional complaints at this time. In the ER she is afebrile, HD stable. Saturating 88% on room air. Placed on supplemental O2 with improvement ER Course: Albuterol 12mL neb Solumedrol 125mg IV Allergies Allergy/AdvReac Type Severity Reaction Status Date / Time bee venom protein (honey bee) Allergy Unknown SHORTNESS Verified 03/24/23 10:42 OF BREATH No Known Drug Allergies Allergy Verified 03/24/23 10:42 Home Medications Medication Instructions Recorded Confirmed Type ibuprofen 200 mg tablet (Advil) 800 mg PO DAILY PRN Pain 08/20/19 03/24/23 History multivitamin 1 tab PO QAM 08/20/19 03/24/23 History omeprazole 40 mg capsule,delayed 40 mg PO QPM 02/17/22 03/24/23 History release valacyclovir 1 gram tablet 1,000 mg PO Q8H PRN .Breakouts 04/29/22 03/24/23 History (Valtrex) ketoconazole 2 % shampoo 1 applic topical .COMPLEX #120 mL 09/09/22 03/24/23 Rx ketoconazole 2 % topical cream 1 applic topical BID PRN .. 10/03/22 03/24/23 History carbidopa ER 50 mg-levodopa 200 mg 1 tab PO TID 90 days #270 tabs 10/04/22 03/24/23 Rx tablet,extended release istradefylline 20 mg tablet 20 mg PO QAM #90 tabs 10/13/22 03/24/23 Rx (Nourianz) metoprolol succinate 25 mg 12.5 mg (1/2 x 25 mg) PO DAILY #45 01/13/23 03/24/23 Rx tablet,extended release 24 hr tabs ondansetron 8 mg disintegrating 8 mg PO Q8H PRN nausea and 03/04/23 03/24/23 Rx tablet vomiting #20 tabs promethazine 25 mg tablet 25 mg PO Q6H PRN nausea and 03/07/23 03/24/23 Rx vomiting #20 tabs albuterol sulfate 90 mcg/actuation See Rx Instructions inhalation Q6H 03/24/23 03/24/23 Rx aerosol inhaler (Ventolin HFA) PRN Shortness Of Breath #18 grams bupropion HCl 150 mg 24 hr tablet, 150 mg PO QAM #30 tabs 03/24/23 03/24/23 Rx extended release ipratropium 0.5 mg-albuterol 3 mg 3 ml inhalation Q6H PRN wheezing 03/24/23 03/24/23 Rx (2.5 mg base)/3 mL nebulization #90 mL soln nebulizers (Compact Ultrasonic #1 ea 03/24/23 03/24/23 Rx Nebulizer) prednisone 10 mg tablet See Rx Instructions PO DAILY #30 03/24/23 03/24/23 Rx tabs Past Med/Surg History Medical History Prediabetes History of basal cell carcinoma Obesity Parkinson disease GERD (gastroesophageal reflux disease) Asthma RES. INH USUALLY ONLY WHEN GETS SICK> OTHERWISE WELL CONTROLLED Parkinsons disease Diverticulosis of colon Surgical History History of basal cell carcinoma (BCC) excision History of anesthesia reaction WAS SOMEWHAT AWAKE DURING EGD AND CAN REMEMBER GETTING SCOPE DOWN THROAT History of esophagogastroduodenoscopy (EGD) Nausea and vomiting after administration of anesthetic agent History of laparoscopy Hx of hand surgery TENDON REPAIR LEFT HAND History of ERCP History of colonoscopy S/P tubal ligation S/P wisdom tooth extraction S/P tonsillectomy and adenoidectomy S/P splenectomy Family History Mother Hypertension Essential tremor Unknown Heart disease Breast cancer Hypertension Son Schizophrenia Father TIA (transient ischemic attack) New onset a-fib Denies family history of Ovarian cancer Prostate cancer Myocardial infarction Colorectal cancer Social History Smoking Status: Former smoker Tobacco Type: Cigarettes Age Started Using Tobacco: 16; Age Quit Using Tobacco: 43; packs per day: 0.5; Second Hand Exposure: No; Do You Dip or Chew Tobacco: No; Hx Alcohol Use: Yes Alcohol type: beer and wine Alcohol Intake Frequency: Monthly or Less Hx Substance Use: No Preferred Language: Taiwanese Communication Ability: Effective Visual Impairment: No Limitations Hearing Ability: Normal Policy Change Clerks Supervisor Required: No Beliefs That Will Affect Care: None marital status: Current Living Situation: Spouse and Family current occupational status: employed current occupation: RN How many Children do You have: 5 Feels Safe at Home: Yes Childhood Exposure to Second-Hand Smoke: Yes Diet: regular Dental Care, Regularly: No Physical Activity Frequency: 3-4 Times per Week Seatbelt Use: always Sunscreen Use: Yes Assistive Devices: Glasses Review of Systems Review of Systems: All systems reviewed & are unremarkable except as noted in HPI & below Physical Exam Physical Exam: General: patient ill in appearance, frequent coughing, answering questions appropriately Skin: warm, dry, intact, no rashes or lesions HEENT: NC/AT, PERRL, EOMI, anicteric sclera, conjunctiva without injection, external ear normal to inspection and nontender, nares patent, moist mucus membranes, dentition intact, no oropharyngeal lesions, neck supple, trachea midline, no LAD, no thyromegaly, no JVD Heart: +S1/S2, regular, no m/r/g Lungs: equal air entry bilaterally, diffuse inspiratory and expiratory wheezing throughout, + crackles present in right lung base Abd: +BS, soft, NT/ND, no masses/organomegaly/ascites Ext: warm, 2+ pulses in UE/LE bilaterally, no clubbing/cyanosis or edema Neuro: nonfocal, patient AA&O x 4, speech intact, no facial droop, moving all extremities on command with equal strength 5/5 Results & Data Results & Data Vital Signs (Past 12 Hours) Vital Signs Temp Pulse Pulse Resp BP BP Pulse Ox 03/28/23 23:53 97 H 20 150/70 H 92 03/28/23 21:51 88 L 12/25/23 20:42 91 H 23 120/78 95 03/28/23 20:00 86 18 95 03/28/23 19:30 03/28/23 19:30 82 22 94 03/28/23 19:30 03/28/23 19:29 102 H 03/28/23 18:57 36.1 C L 87 20 135/90 95 O2 Del Method O2 Flow Rate 03/28/23 23:53 Nasal Cannula 2 03/28/23 21:51 Nasal Cannula 0 03/28/23 20:42 Nebulizer 03/28/23 20:00 Room Air 03/28/23 19:30 Room Air 03/28/23 19:30 Room Air 03/28/23 19:30 Room Air 03/28/23 19:29 03/28/23 18:57 Room Air Laboratory Results Laboratory Results WBC 10.98 K/ul (4.8-10.8) H 03/28/23 19:54 RBC 4.41 M/uL (4.20-5.40) 03/28/23 19:54 Hgb 14.3 g/dl (12.0-16.0) 03/28/23 19:54 Hct 41.0 % (37.0-47.0) 03/28/23 19:54 MCV 93.0 fL (80.0-100.0) 03/28/23 19:54 MCH 32.4 pg (25.0-34.0) 03/28/23 19:54 MCHC 34.9 g/dL (32.0-36.0) 03/28/23 19:54 RDW Std Deviation 51.8 fL (36.4-46.3) H 03/28/23 19:54 RDW Coeff of Klaus 15.2 % (11.5-14.5) H 03/28/23 19:54 Plt Count 225 K/uL (130-400) 03/28/23 19:54 MPV 14.1 fL (9.4-12.4) H 03/28/23 19:54 Immature Gran % (Auto) 0.5 % 03/28/23 19:54 Neut % (Auto) 83.7 % 03/28/23 19:54 Lymph % (Auto) 11.7 % 03/28/23 19:54 Schley % (Auto) 3.7 % 03/28/23 19:54 Eos % (Auto) 0.0 % 03/28/23 19:54 Baso % (Auto) 0.4 % 03/28/23 19:54 Neut # (Auto) 9.18 K/uL (1.40-6.50) H 03/28/23 19:54 Lymph # (Auto) 1.29 K/uL (1.20-3.40) 03/28/23 19:54 Schley # (Auto) 0.41 K/uL (0.11-0.59) 03/28/23 19:54 Eos # (Auto) 0.00 K/uL (0.00-0.50) 03/28/23 19:54 Baso # (Auto) 0.04 K/uL (0.00-0.20) 03/28/23 19:54 Immature Gran # (Auto) 0.06 K/uL (0.01-0.20) 03/28/23 19:54 Target Cells 1+ 03/28/23 19:54 Echinocytes 1+ 03/28/23 19:54 PT 10.6 Seconds (9.0-12.0) 03/28/23 19:54 INR 1.0 (0.9-1.1) 03/28/23 19:54 VBG pH 7.45 (7.36-7.41) H 03/28/23 19:54 VBG pCO2 38 mmHg (38-50) 03/28/23 19:54 VBG pO2 54 mmHg 03/28/23 19:54 VBG HCO3 26 mmol/L 03/28/23 19:54 VBG O2 Saturation 87.0 % 03/28/23 19:54 VBG Base Excess 2.4 mEq/L 03/28/23 19:54 Sodium 140 mmol/L (136-145) 03/28/23 19:54 Potassium 3.8 mmol/L (3.5-5.1) 03/28/23 19:54 Chloride 107 mmol/L (98-107) 03/28/23 19:54 Carbon Dioxide 23 mmol/L (21-32) 03/28/23 19:54 Anion Gap 10 (3-11) 03/28/23 19:54 BUN 15 mg/dl (6-23) 03/28/23 19:54 Creatinine 0.78 mg/dl (0.6-1.2) 03/28/23 19:54 Est Cr Clr Drug Dosing 82.3 ml/min 03/28/23 19:54 Est GFR ( Amer) 97.8 ml/min 03/28/23 19:54 Est GFR (Non-Af Amer) 84.4 ml/min 03/28/23 19:54 BUN/Creatinine Ratio 19.2 (10-20) 03/28/23 19:54 Glucose 140 mg/dl (70-99(Fasting)) H 03/28/23 19:54 Calcium 9.3 mg/dl (8.6-10.3) 03/28/23 19:54 Magnesium 1.8 mg/dl (1.7-2.4) 03/28/23 19:54 Ferritin 110.6 ng/ml (8-388) 03/28/23 19:54 Total Bilirubin 0.4 mg/dl (0.2-1.0) 03/28/23 19:54 AST 22 U/L (13-39) 03/28/23 19:54 ALT 22 U/L (7-52) 03/28/23 19:54 Alkaline Phosphatase 82 U/L (34-104) 03/28/23 19:54 Troponin I High Sens 3.6 pg/ml (0-14) 03/28/23 19:54 C-Reactive Protein < 0.50 mg/dl (0-0.5) 03/28/23 19:54 B-Natriuretic Peptide 44 pg/ml (0-100) 03/28/23 19:54 Total Protein 7.3 gm/dl (6.0-8.3) 03/28/23 19:54 Albumin 4.2 gm/dl (3.4-5.0) 03/28/23 19:54 Globulin 3.1 gm/dl (2.5-4.0) 03/28/23 19:54 Albumin/Globulin Ratio 1.4 (0.9-2) 03/28/23 19:54 Procalcitonin < 0.05 ng/ml (0-0.5) 03/28/23 19:58 Urine Color Yellow 03/28/23 23:40 Urine Appearance Clear (Clear) 03/28/23 23:40 Urine pH 5.5 (4.5-7.5) 03/28/23 23:40 Ur Specific [place] > 1.045 (1.000-1.030) H 03/28/23 23:40 Urine Protein Negative (Negative) 03/28/23 23:40 Urine Glucose (UA) Negative (Negative) 03/28/23 23:40 Urine Ketones Negative (Negative) 03/28/23 23:40 Urine Blood Negative (Negative) 03/28/23 23:40 Urine Nitrite Negative (Negative) 03/28/23 23:40 Urine Bilirubin Negative (Negative) 03/28/23 23:40 Urine Urobilinogen Negative (Negative) 03/28/23 23:40 Ur Leukocyte Esterase Negative (Negative) 03/28/23 23:40 SARS-CoV-2, RNA, NAAT POSITIVE (NEGATIVE) A* 03/28/23 23:33 Impressions Chest X-Ray 03/28/23 19:17 XR chest 1V portable CLINICAL HISTORY: Dyspnea. COMPARISON STUDY: Chest radiograph July 27, 2021. Chest radiograph March 052022. FINDINGS: Lung volumes are normal. Lungs are clear. There is no pneumothorax or pleural effusion. Cardiac size is stable. Mediastinal contours are normal. There is no evidence for pulmonary edema. IMPRESSION: No acute cardiopulmonary findings. ACT 112: Negative or not required by law. Electronically signed by: Volodymyr Peoples M.D. 03/28/2023 7:43 PM Chest CTA 03/28/23 21:45 Exam(s): CTA CHEST IV Amt: 119ML OPTIRAY 320 EXAM: CT Angiography Chest With Intravenous Contrast CLINICAL HISTORY: Reason for exam: PE. TECHNIQUE: Axial computed tomographic angiography images of the chest with intravenous contrast. CTDI is 28.03 mGy and DLP is 793 mGy-cm. Automated exposure control was utilized for the study. A dose lowering technique was utilized adhering to the principles of ALARA. MIP reconstructed images were created and reviewed. COMPARISON: 07/27/2021 FINDINGS: Pulmonary arteries: Unremarkable. No pulmonary embolism. Aorta: No acute findings. No thoracic aortic aneurysm. Lungs: Linear atelectasis within both lower lobes unchanged from prior exam. More confluent opacity within the right lower lobe likely etiology is new since prior study. Pleural space: Unremarkable. No significant effusion. No pneumothorax. Heart: Unremarkable. No cardiomegaly. No significant pericardial effusion. No evidence of RV dysfunction. Bones/joints: No acute fracture. No dislocation. Soft tissues: Unremarkable. Lymph nodes: Unremarkable. No enlarged lymph nodes. IMPRESSION: 1. Right lower lobe infiltrate likely of infectious or inflammatory etiology 2. No pulmonary embolus Electronically signed by: Lincoln Khalil MD 03/28/23 23:07 PM Code Status & VTE Plan VTE Prophylaxis Plan VTE Prophylaxis will be ordered: Yes PG Care Time/CCT Total # of Minutes Spent Total Time Spent with Patient: Total time spent is greater than 50% in coordination of care (as documented) at patient's floor/unit and/or counseling patient: Coding Level of Care Code 51907 INT INP/OBS CARE 2/55MIN Diagnoses COVID-19 U07.1 Pneumonia J18.9 Parkinsonism G20 Parkinsonism type: unspecified Depression with anxiety F41.8 (3) Parkinsonism Parkinsonism type: unspecified Qualified Code(s): G20 - Parkinson's disease
[2023-03-29] MEDS ORDERED: ACETAMINOPHEN 325 MG TAB PO PRN (01:05)
[2023-03-29] MEDS ORDERED: ONDANSETRON INJ 2 MG/ML 2 ML VIAL IV PRN (01:05)
[2023-03-29] MEDS ORDERED: cefTRIAXone SODIUM 2000MG/50ML D5W IV ONE (01:20)
[2023-03-29] MEDS: BENZONATATE 100 MG CAPSULE PO PRN ×3 (01:22→17:20)
[2023-03-29] MEDS: cefTRIAXone SODIUM 2,000 MG in DEXTROSE 5 % MINI-B 50 ML IV SCH (01:23)
[2023-03-29 01:24] LABS: C Reactive Protein < 0.50 mg/dl (0-0.5)
[2023-03-29 01:45] LABS: Ferritin 110.6 ng/ml (8-388)
[2023-03-29] MEDS ORDERED: AZITHROMYCIN 500 MG in DEXTROSE 5% 250 ML IV ONE (01:45)
[2023-03-29] MEDS ORDERED: REMDESIVIR 200 MG in SODIUM CHLORIDE 0.9% 210 ML IV ONE (02:30)
[2023-03-29] MEDS: ALBUT/IPRATROP 3MG/0.5MG NEB 3 ML VIAL INH PRN ×2 (04:00→08:30)
[2023-03-29] MEDS ORDERED: Nursing to Pharmacy Communication SCH ×3 (04:15→17:30)
[2023-03-29] MEDS ORDERED: CARBIDOPA/LEVODOPA 50/200MG EXT REL TAB PO SCH (06:00)
--- NOTE | 2023-03-29 07:36 | Hospitalist Progress Note ---
"Date of Service March 29, 2023 Assessment & Plan (1) COVID-19: (2) Pneumonia: (3) Parkinsonism: (4) Depression with anxiety: Plan Irina is a 58 F w/ PMH of PSVT, GERD, endometriosis, asthma, Parkinsonism, Vitamin D deficiency, HLD, depression, anxiety, pre-diabetes, and obesity who presents for acute hypoxia and was admitted for management of acute COVID-19 and PNA. Acute COVID-19 Infection | RLL PNA | Acute Hypoxic Resp Failure - Patient w/ 12 days of progressive respiratory sx (dyspnea, cough, hypoxia) - S/p Prednisone taper at home 03/24/23 and home inhaler use w/o improvement - Presenting with AHRF (O2 Sat 87-89%), improvement following supplemental O2 (3L NC, no O2 at baseline) - COVID negative x 3 at home, now positive 03/27/23, likely unspecified viral infection prior to COVID19 - CT Chest indicating RLL infiltrate - Physical examination with crackles at RLL at presentation - Leukocytosis on CBC, ProCal Negative - High risk for sepsis 2/2 Strep PNA --- COVID19: Continue Remdesavir, Dexamethasone 6 mg IV daily, Duonebs PRN, and Albuterol PRN. Continue isolation precautions. --- RLL PNA: Continue Empiric Abx w/ Ceftriaxone and Azithromycin given sepsis risk in setting of asplenia. Continue Tessalon & Tylenol PRN. --- Acute Hypoxic Resp Failure: Continue Oxygen support via nasal cannula, encourage pulmonary toilet Parkinsonism: Chronic, stable on home Carbidopa-Levodopa Depression/Anxiety: Chronic, stable on home Wellbutrin Paroxysmal SVT: Chronic, continue home Metoprolol GERD: Chronic, stable, continue ho me Omeprazole FEN: Reg Code status: Full Code DVT ppx: Lovenox Isolation: COVID-19 Dispo:Med/Surg Admission and Anticipated Discharge Date Admission Date: March 29, 2023 Supervising Physician Co-Signing Physician Notes Attending Physician Supervision Note: I independently interviewed and examined the patient and verified the rodriguez history and physical, reviewed labs and image studies and agree with findings and care plan noted above. Subjective 03/29: Patient resting comfortably in bed upon arrival. Endorses ongoing dyspnea and cough, notes that her O2 sat drops w/o the nasal canula. She discussed that she has been experiencing a lot of health concerns over the past few months (side effects from Mounjaro, kidney infection, prolonged upper respiratory illness) and now COVID-19. She denies any fevers, chills, nausea, emesis, chest pain, abdominal pain, or bowel/bladder changes. Patient notes that she is UTD on vaccinations given her hx of asplenia. Physical Exam Physical Exam: General: Fatigued, occasional coughing, pleasant, NAD Skin: warm, dry, intact, no rashes or lesions HEENT: NC/AT, anicteric sclera, MMM, bilateral anterior cervical LAD, no thyromegaly Heart: RRR, +S1/S2, no m/r/g Lungs: Non-labored, inspiratory/expiratory wheezing throughout, crackles in RLL Abd: +BS, soft, no TTP Ext: warm, 2+ pulses in UE/LE bilaterally, no clubbing/cyanosis or edema Neuro: AO x 4, no focal deficits Results & Data Results & Data Vital Signs (Past 12 Hours) Vital Signs Pulse Pulse Resp BP Pulse Ox O2 Del Method O2 Flow Rate 03/29/23 07:27 66 03/29/23 05:00 82 19 96/67 L 91 Nasal Cannula 3 03/29/23 03:15 89 19 106/74 92 Nasal Cannula 3 03/29/23 01:25 93 H 17 127/71 93 Nasal Cannula 3 03/29/23 00:28 101 H 03/28/23 23:53 97 H 20 150/70 H 92 Nasal Cannula 2 03/28/23 21:51 88 L Nasal Cannula 0 03/28/23 20:42 91 H 23 120/78 95 Nebulizer 03/28/23 20:00 86 18 95 Room Air Resident Activity Tracking Resident Involvement: Resident Care Provided Care Provided: Adult Hospital Medicine (3) Parkinsonism Parkinsonism type: unspecified Qualified Code(s): G20 - Parkinson's disease"
[2023-03-29] MEDS: ALBUTEROL HFA 8 GM INHALER INH PRN (08:17)
[2023-03-29] MEDS ORDERED: METOPROLOL SUCC 25MG EXT REL TAB PO SCH (09:00)
[2023-03-29] MEDS: ALBUT/IPRATROP 3MG/0.5MG NEB 3 ML VIAL INH SCH ×5 (09:23→22:28)
[2023-03-29] MEDS: ENOXAPARIN INJ 40 MG/0.4 ML SYR SQ SCH (09:29)
[2023-03-29] MEDS: dexAMETHasone 6 MG in SYRINGE 0 ML IV SCH (09:31)
[2023-03-29] MEDS: CARBIDOPA/LEVODOPA 50/200MG EXT REL TAB PO SCH ×3 (10:25→21:52)
[2023-03-29] MEDS: buPROPion XL 150 MG TABCR PO SCH (10:25)
--- NOTE | 2023-03-29 10:32 | Electrocardiogram Report ---
Test Reason : Blood Pressure : / mmHG Vent. Rate : 068 BPM Atrial Rate : 068 BPM P-R Int : 168 ms QRS Dur : 078 ms QT Int : 414 ms P-R-T Axes : 058 056 036 degrees QTc Int : 440 ms Normal sinus rhythm When compared with ECG of 03-OCT-2022 13:02, Nonspecific T wave abnormality has replaced inverted T waves in Inferior leads Confirmed by Quentin Dinero ([id number]) on 03/29/2023 10:31:44 AM Referred By: REFERRED SELF Confirmed By:Kody Dinero
[2023-03-29] MEDS ORDERED: IBUPROFEN 600 MG TAB PO PRN (17:07)
[2023-03-29] MEDS: IBUPROFEN 200 MG TAB PO PRN (18:14)
[2023-03-29] MEDS: METOPROLOL SUCC 25MG EXT REL TAB PO SCH (20:24)
[2023-03-30] MEDS: AZITHROMYCIN 250 MG in DEXTROSE 5% 250 ML IV SCH (01:10)
[2023-03-30] MEDS: cefTRIAXone SODIUM 2,000 MG in DEXTROSE 5 % MINI-B 50 ML IV SCH (01:10)
[2023-03-30] MEDS: ALBUT/IPRATROP 3MG/0.5MG NEB 3 ML VIAL INH SCH ×6 (02:45→23:45)
--- NOTE | 2023-03-30 07:20 | Hospitalist Progress Note ---
"Date of Service March 30, 2023 Assessment & Plan (1) COVID-19: (2) Pneumonia: (3) Parkinsonism: (4) Depression with anxiety: Plan Irina is a 58 F w/ PMH of PSVT, GERD, endometriosis, asthma, Parkinsonism, Vitamin D deficiency, HLD, depression, anxiety, pre-diabetes, and obesity who presents for acute hypoxia and was admitted for management of acute COVID-19 and PNA. Acute COVID-19 Infection | RLL PNA | Acute Hypoxic Resp Failure - Patient w/ 12 days of progressive respiratory sx (dyspnea, cough, hypoxia) - S/p Prednisone taper at home 03/24/23 and home inhaler use w/o improvement - Presenting with AHRF (O2 Sat 87-89%), improvement following supplemental O2 (3L NC, no O2 at baseline) - COVID negative x 3 at home, now positive 03/27/23, likely unspecified viral infection prior to COVID19 - CT Chest indicating RLL infiltrate - Physical examination with crackles at RLL at presentation - Leukocytosis on CBC, ProCal Negative - High risk for sepsis 2/2 Strep PNA --- COVID19: Continue Remdesavir, Dexamethasone 6 mg IV daily, Duonebs PRN, and Albuterol PRN. Continue isolation precautions. Continue Tessalon & Tylenol PRN. --- RLL PNA: Continue Empiric Abx w/ Ceftriaxone and Azithromycin given sepsis risk in setting of asplenia. Ongoing Leukocytosis (likely 2/2 steroids). --- Acute Hypoxic Resp Failure: Continue Oxygen support via nasal cannula, encourage pulmonary toilet Parkinsonism: Chronic, stable on home Carbidopa-Levodopa Depression/Anxiety: Chronic, stable on home Wellbutrin Paroxysmal SVT: Chronic, continue home Metoprolol GERD: Chronic, stable, continue home Omeprazole FEN: Reg Code status: Full Code DVT ppx: Lovenox Isolation: COVID-19 Dispo:Med/Surg Admission and Anticipated Discharge Date Admission Date: March 29, 2023 Supervising Physician Co-Signing Physician Notes ATTESTATION I also saw the patient and confirmed rodriguez portions of the history and exam. I agree with the impression and plan in the resident documentation, and as saha mmarized below. Patient sleeping but awakens to voice. States that she feels a little better today compared to yesterday; cough is more productive. She is now on 5 L via nasal cannula; she had been turned down to 4 L at some point yesterday, she does note that she feels better on the 5 L today. She talks in full and complete sentences without pause except for the occasional cough. During conversation, SpO2 ranges between 91-93% on 5 L/min. EXAM 122/81, 78, 22, 36.6, 94% on nasal cannula 5 L/min Alert and oriented. Respirations nonlabored Heart regular DATA Labs White blood cell count 16.22, hemoglobin 13.9 Sodium 140, potassium 3.9, BUN 13, creatinine 0.[address] scan of the chest dated 03/28/2023 demonstrates a right lower lobe infiltrate, negative for pulmonary embolism IMPRESSION & PLAN COVID-19 Pneumonia Continue remdesivir, dexamethasone, DuoNebs, albuterol Ceftriaxone and azithromycin Supplemental oxygen, wean as able Additional per resident documentation Subjective 03/30: Patient resting comfortably upon arrival. She notes that she had a rough night, but that she is feeling much improved this AM. He oxygen saturation continues to fall with ambulation. She has an ongoing cough, productive of clear sputum. She denies any fevers, chills, nausea, emesis, chest pain, abdominal pain, or bowel/bladder changes. Physical Exam Physical Exam: General: NAD, occasional coughing, pleasant Skin: warm, dry, intact, no rashes or lesions HEENT: NC/AT, anicteric sclera, MMM, bilateral anterior cervical LAD, no thyromegaly Heart: RRR, +S1/S2, no m/r/g Lungs: Non-labored, no wheezing bilaterally, faint crackles in RLL Abd: +BS, soft, no TTP Ext: warm, 2+ pulses in UE/LE bilaterally, no clubbing/cyanosis or edema Neuro: AO x 4, no focal deficits Results & Data Results & Data Vital Signs (Past 12 Hours) Vital Signs Pulse Resp BP Pulse Ox O2 Del Method O2 Flow Rate 03/30/23 05:53 60 18 96 Nasal Cannula 4 03/30/23 02:46 92 H 18 94 Nasal Cannula 4 03/29/23 22:28 92 H 18 93 Nasal Cannula 4 03/29/23 21:50 Nasal Cannula 4 03/29/23 20:21 108 H 18 111/74 91 Room Air 4 03/29/23 19:37 102 H 20 91 Nasal Cannula 4 Resident Activity Tracking Resident Involvement: Resident Care Provided Care Provided: Adult Hospital Medicine (3) Parkinsonism Parkinsonism type: unspecified Qualified Code(s): G20 - Parkinson's disease"
[2023-03-30] MEDS: BENZONATATE 100 MG CAPSULE PO PRN ×2 (07:58→16:49)
[2023-03-30] MEDS: ENOXAPARIN INJ 40 MG/0.4 ML SYR SQ SCH (08:00)
[2023-03-30] MEDS: dexAMETHasone 6 MG in SYRINGE 0 ML IV SCH (08:03)
[2023-03-30] MEDS: buPROPion XL 150 MG TABCR PO SCH (10:14)
[2023-03-30] MEDS: CARBIDOPA/LEVODOPA 50/200MG EXT REL TAB PO SCH ×3 (10:15→22:12)
[2023-03-30 10:25] LABS: Alanine Aminotransferase 9 U/L (7-52); Albumin Globulin Ratio 1.3 (0.9-2); Albumin Level 3.8 gm/dl (3.4-5.0); Alkaline Phosphatase 78 U/L (34-104); Anion Gap 9 (3-11); Bilirubin,Total 0.4 mg/dl (0.2-1.0); Blood Urea Nitrogen 13 mg/dl (6-23); Calcium 8.8 mg/dl (8.6-10.3); Carbon Dioxide 26 mmol/L (21-32); Chloride 105 mmol/L (98-107); Creatinine Clr Calc Pharmacy 79.2 ml/min; Est GFR (African American) 93.4 ml/min; Est GFR (Non-African American) 80.6 ml/min; Glucose 114 mg/dl (70-99(Fasting)); Sodium 140 mmol/L (136-145); Total Protein 6.8 gm/dl (6.0-8.3)
[2023-03-30 10:43] LABS: Hematocrit (blood only) 39.9 % (37.0-47.0); Hemoglobin 13.9 g/dl (12.0-16.0); Mean Corpuscular Hemoglobin 32.9 pg (25.0-34.0); Mean Corpuscular Hgb Conc 34.8 g/dL (32.0-36.0); Mean Corpuscular Volume 94.3 fL (80.0-100.0); Mean Platelet Volume 13.9 fL (9.4-12.4); Platelet Count 229 K/uL (130-400); RDW Coefficient of Variation 16.4 % (11.5-14.5); RDW Standard Deviation 55.7 fL (36.4-46.3); Red Blood Count 4.23 M/uL (4.20-5.40); White Blood Count 16.22 K/ul (4.8-10.8)
[2023-03-30 11:31] LABS: Potassium 3.9 mmol/L (3.5-5.1)
[2023-03-30] MEDS: REMDESIVIR 100 MG in SODIUM CHLORIDE 0.9% 230 ML IV SCH (11:49)
[2023-03-30] MEDS: IBUPROFEN 200 MG TAB PO PRN (18:37)
[2023-03-30] MEDS: METOPROLOL SUCC 25MG EXT REL TAB PO SCH (22:12)
[2023-03-30] MEDS: FAMOTIDINE 20 MG TAB PO PRN (22:13)
[2023-03-30] MEDS: CALCIUM CARBONATE 500 MG CHEWABLE TAB PO PRN (22:13)
[2023-03-31] MEDS: cefTRIAXone SODIUM 2,000 MG in DEXTROSE 5 % MINI-B 50 ML IV SCH (00:57)
[2023-03-31] MEDS: BENZONATATE 100 MG CAPSULE PO PRN ×3 (00:57→18:31)
[2023-03-31] MEDS: AZITHROMYCIN 250 MG in DEXTROSE 5% 250 ML IV SCH (01:40)
[2023-03-31] MEDS: ALBUT/IPRATROP 3MG/0.5MG NEB 3 ML VIAL INH SCH ×6 (03:37→23:00)
--- NOTE | 2023-03-31 07:07 | Hospitalist Progress Note ---
"Date of Service March 31, 2023 Assessment & Plan (1) COVID-19: (2) Pneumonia: (3) Parkinsonism: (4) Depression with anxiety: Plan Irina is a 58 F w/ PMH of PSVT, GERD, endometriosis, asthma, Parkinsonism, Vitamin D deficiency, HLD, depression, anxiety, pre-diabetes, and obesity who presents for acute hypoxia and was admitted for management of acute COVID-19 and PNA. Acute COVID-19 Infection | RLL PNA | Acute Hypoxic Resp Failure - Patient w/ 12 days of progressive respiratory sx (dyspnea, cough, hypoxia) - S/p Prednisone taper at home 03/24/23 and home inhaler use w/o improvement - Presenting with AHRF (O2 Sat 87-89%), improvement following supplemental O2 (3L NC, no O2 at baseline) - COVID negative x 3 at home, now positive 03/27/23, likely unspecified viral infection prior to COVID19 - CT Chest indicating RLL infiltrate - Physical examination with crackles at RLL at presentation - Leukocytosis on CBC, ProCal Negative - High risk for sepsis 2/2 Strep PNA --- COVID19: Continue Remdesavir, Dexamethasone 6 mg IV daily, Duonebs PRN, and Albuterol PRN. Continue isolation precautions. Continue Tessalon & Tylenol PRN. --- RLL PNA: Continue Empiric Abx w/ Ceftriaxone and Azithromycin given sepsis risk in setting of asplenia. Ongoing Leukocytosis (likely 2/2 steroids). --- Acute Hypoxic Resp Failure: Continue Oxygen support via nasal cannula, encourage pulmonary toilet Parkinsonism: Chronic, stable on home Carbidopa-Levodopa Depression/Anxiety: Chronic, stable on home Wellbutrin Paroxysmal SVT: Chronic, continue home Metoprolol GERD: Chronic, stable, continue home Omeprazole (Pantoprazole inpatient), added Famotidine PRN FEN: Reg Code status: Full Code DVT ppx: Lovenox Isolation: COVID-19 Dispo:Med/Surg Admission and Anticipated Discharge Date Admission Date: March 29, 2023 Supervising Physician Co-Signing Physician Notes ATTESTATION I also saw the patient and confirmed rodriguez portions of the history and exam. I agree with the impression and plan in the resident documentation, and as summarized below. Upon our exam this morning, she is out of bed to the bedside chair working on her laptop.She notes continued improvement. She is down to 4 L/min via nasal cannula and maintaining pulse oximeter readings 92-93%. EXAM Vital signs stable Alert and oriented. Respirations nonlabored; Breath sounds somewhat coarse, no wheezing, examination hampered by cough with deep inspiration Heart regular DATA Labs WBC 15.19 Electrolytes unremarkable IMPRESSION & PLAN COVID-19 Pneumonia General impression is that of improvement She had been declining Lovenox injections, but after review of increased risk of VTE in the setting of COVID, she is willing to take Lovenox Continue remdesivir, dexamethasone, DuoNebs, albuterol Ceftriaxone and azithromycin Supplemental oxygen, wean as able Additional per resident documentation Subjective 03/31: Patient sitting comfortably in bed upon arrival. She feels like she is turning a corner, but continues to feel dyspneic with ambulation. Her cough is ongoing and is now productive of clear-yellow sputum. She denies fevers, chills, nausea, emesis, chest pain, abdominal pain, or bowel bladder changes. Upon dis cussion, patient agreeable to take Lovenox dosing as COVID has been known to induce hypercoagulability. Physical Exam Physical Exam: General: NAD, occasional coughing, pleasant Skin: warm, dry, intact, no rashes or lesions HEENT: NC/AT, anicteric sclera, MMM, bilateral anterior cervical LAD, no th yromegaly Heart: RRR, +S1/S2, no m/r/g Lungs: Non-labored, no wheezing bilaterally, faint crackles in RLL, transmitted upper airway sounds Abd: +BS, soft, no TTP Ext: warm, 2+ pulses in UE/LE bilaterally, no clubbing/cyanosis or edema Neuro: AO x 4, no focal deficits Results & Data Results & Data Vital Signs (Past 12 Hours) Vital Signs Temp Pulse Resp BP Pulse Ox O2 Del Method O2 Flow Rate 03/31/23 03:38 86 18 96 Nasal Cannula 5 03/30/23 23:46 84 18 95 Nasal Cannula 5 03/30/23 21:49 Nasal Cannula 5 03/30/23 20:34 36.6 C 80 16 136/78 95 Nasal Cannula 03/30/23 19:29 94 H 20 94 Nasal Cannula 5 Resident Activity Tracking Resident Involvement: Resident Care Provided Care Provided: Adult Hospital Medicine (3) Parkinsonism Parkinsonism type: unspecified Qualified Code(s): G20 - Parkinson's disease"
[2023-03-31 08:47] LABS: BUN Creatinine Ratio 19.7 (10-20); Calcium 9.3 mg/dl (8.6-10.3); Creatinine Clr Calc Pharmacy 105.2 ml/min; Est GFR (African American) 116.6 ml/min; Est GFR (Non-African American) 100.6 ml/min; Potassium 4.1 mmol/L (3.5-5.1)
[2023-03-31 09:33] LABS: Hemoglobin 14.5 g/dl (12.0-16.0); Mean Corpuscular Hemoglobin 32.6 pg (25.0-34.0); Mean Corpuscular Hgb Conc 34.5 g/dL (32.0-36.0); Mean Corpuscular Volume 94.4 fL (80.0-100.0); Mean Platelet Volume 14.1 fL (9.4-12.4); Platelet Count 180 K/uL (130-400); RDW Coefficient of Variation 17.2 % (11.5-14.5); RDW Standard Deviation 56.7 fL (36.4-46.3); Red Blood Count 4.45 M/uL (4.20-5.40); White Blood Count 15.19 K/ul (4.8-10.8)
[2023-03-31] MEDS: FAMOTIDINE 20 MG TAB PO PRN (09:41)
[2023-03-31] MEDS: CALCIUM CARBONATE 500 MG CHEWABLE TAB PO PRN ×2 (09:41→22:24)
[2023-03-31] MEDS: dexAMETHasone 6 MG in SYRINGE 0 ML IV SCH (09:42)
[2023-03-31] MEDS: ENOXAPARIN INJ 40 MG/0.4 ML SYR SQ SCH ×2 (09:48→22:23)
[2023-03-31] MEDS ORDERED: SODIUM CHLORIDE 0.65% NA SOLN 45 ML (OCEAN) PRN (09:55)
[2023-03-31] MEDS: IBUPROFEN 200 MG TAB PO PRN (10:17)
[2023-03-31] MEDS: buPROPion XL 150 MG TABCR PO SCH (10:19)
[2023-03-31] MEDS: CARBIDOPA/LEVODOPA 50/200MG EXT REL TAB PO SCH ×4 (10:20→22:24)
[2023-03-31] MEDS: PANTOprazole 40 MG TAB PO SCH (12:01)
[2023-03-31] MEDS: REMDESIVIR 100 MG in SODIUM CHLORIDE 0.9% 230 ML IV SCH (12:11)
[2023-03-31] MEDS ORDERED: Nursing to Pharmacy Communication SCH (16:00)
[2023-03-31] MEDS: METOPROLOL SUCC 25MG EXT REL TAB PO SCH (21:38)
[2023-04-01] MEDS: cefTRIAXone SODIUM 2,000 MG in DEXTROSE 5 % MINI-B 50 ML IV SCH (01:23)
[2023-04-01] MEDS: BENZONATATE 100 MG CAPSULE PO PRN ×3 (01:58→17:09)
[2023-04-01] MEDS: AZITHROMYCIN 250 MG in DEXTROSE 5% 250 ML IV SCH (01:58)
[2023-04-01] MEDS: ALBUT/IPRATROP 3MG/0.5MG NEB 3 ML VIAL INH SCH ×6 (02:14→22:29)
[2023-04-01] MEDS: IBUPROFEN 200 MG TAB PO PRN ×2 (04:58→20:05)
--- NOTE | 2023-04-01 06:57 | Hospitalist Progress Note ---
"Date of Service April 01, 2023 Assessment & Plan (1) COVID-19: (2) Pneumonia: (3) Parkinsonism: (4) Depression with anxiety: Plan Irina is a 58 F w/ PMH of PSVT, GERD, endometriosis, asthma, Parkinsonism, Vitamin D deficiency, HLD, depression, anxiety, pre-diabetes, and obesity who presents for acute hypoxia and was admitted for management of acute COVID-19 and PNA. Acute COVID-19 Infection | RLL PNA | Acute Hypoxic Resp Failure - Patient w/ 12 days of progressive respiratory sx (dyspnea, cough, hypoxia) - S/p Prednisone taper at home 03/24/23 and home inhaler use w/o improvement - Presenting with AHRF (O2 Sat 87-89%), improvement following supplemental O2 (3L NC, no O2 at baseline) - COVID negative x 3 at home, now positive 03/27/23, likely unspecified viral infection prior to COVID19 - CT Chest indicating RLL infiltrate - Physical examination with crackles at RLL at presentation - Leukocytosis on CBC, ProCal Negative - High risk for sepsis 2/2 Strep PNA --- COVID19: Continue Remdesavir, Dexamethasone 6 mg IV daily, Duonebs PRN, and Albuterol PRN. Continue isolation precautions. Continue Tessalon & Tylenol PRN. --- RLL PNA: Continue Empiric Abx w/ Ceftriaxone and Azithromycin given sepsis risk in setting of asplenia. --- Acute Hypoxic Resp Failure: Continue Oxygen support via nasal cannula, encourage pulmonary toilet, continue to wean O2 as tollerated Parkinsonism: Chronic, stable on home Carbidopa-Levodopa Depression/Anxiety: Chronic, stable on home Wellbutrin Paroxysmal SVT: Chronic, continue home Metoprolol GERD: Chronic, stable, continue home Omeprazole (Pantoprazole inpatient), added Famotidine PRN FEN: Reg Code status: Full Code DVT ppx: Lovenox Isolation: COVID-19 Dispo:Med/Surg Admission and Anticipated Discharge Date Admission Date: March 29, 2023 Supervising Physician Co-Signing Physician Notes I personally examined the patient and verified rodriguez points of history and exam, discussed case, and agree with decision making and plan documented by Dr. Bryson. Patient feels she is improving from a respiratory standpoint. Lungs with decreased air movement diffusely and bilateral lower lobe expiratory wheezing, heart regular rate and rhythm. Weaning oxygen as tolerated. Work note provided today. Subjective 04/01: Patient conversing with [place] upon arrival, in good spirits. Ongoing dyspnea with ambulation, but patient continues to note improvement. Cough is ongoing and remains productive. She denies fevers, chills, nausea, emesis, chest pain, abdominal pain, or bowel bladder changes. Requesting note for work (provided). Physical Exam Physical Exam: General: NAD, occasional coughing, pleasant Skin: warm, dry, intact, no rashes or lesions HEENT: NC/AT, anicteric sclera, MMM, bilateral anterior cervical LAD (improved), no thyromegaly Heart: RRR, +S1/S2, no m/r/g Lungs: Non-labored, no wheezing bilaterally, faint crackles in RLL, resolved upper airway sounds Abd: +BS, soft, no TTP Ext: warm, 2+ pulses in UE/LE bilaterally, no clubbing/cyanosis or edema Neuro: AO x 4, no focal deficits Results & Data Results & Data Vital Signs (Past 12 Hours) Vital Signs Temp Pulse Resp BP Pulse Ox O2 Del Method O2 Flow Rate 04/01/23 02:14 78 18 97 Nasal Cannula 4 04/01/23 01:23 36.8 C 86 18 128/76 93 Nasal Cannula 4 03/31/23 23:02 76 18 96 Nasal Cannula 4 03/31/23 21:00 Nasal Cannula 4 03/31/23 19:30 87 18 94 Nasal Cannula 4 Resident Activity Tracking Resident Involvement: Resident Care Provided Care Provided: Adult Hospital Medicine (3) Parkinsonism Parkinsonism type: unspecified Qualified Code(s): G20 - Parkinson's disease"
[2023-04-01] MEDS: dexAMETHasone 6 MG in SYRINGE 0 ML IV SCH (09:09)
[2023-04-01] MEDS: PANTOprazole 40 MG TAB PO SCH (09:15)
[2023-04-01] MEDS: buPROPion XL 150 MG TABCR PO SCH (09:16)
[2023-04-01] MEDS: CARBIDOPA/LEVODOPA 50/200MG EXT REL TAB PO SCH ×3 (11:34→22:26)
[2023-04-01] MEDS: REMDESIVIR 100 MG in SODIUM CHLORIDE 0.9% 230 ML IV SCH (12:14)
[2023-04-01] MEDS: ENOXAPARIN INJ 40 MG/0.4 ML SYR SQ SCH (22:26)
[2023-04-01] MEDS: METOPROLOL SUCC 25MG EXT REL TAB PO SCH (22:29)
[2023-04-02] MEDS: BENZONATATE 100 MG CAPSULE PO PRN ×3 (00:53→17:43)
[2023-04-02] MEDS: cefTRIAXone SODIUM 2,000 MG in DEXTROSE 5 % MINI-B 50 ML IV SCH (00:53)
[2023-04-02] MEDS: AZITHROMYCIN 250 MG in DEXTROSE 5% 250 ML IV SCH (01:30)
[2023-04-02] MEDS: ALBUT/IPRATROP 3MG/0.5MG NEB 3 ML VIAL INH SCH ×6 (02:35→22:20)
--- NOTE | 2023-04-02 07:25 | Hospitalist Progress Note ---
"Date of Service April 02, 2023 Assessment & Plan (1) COVID-19: (2) Pneumonia: (3) Parkinsonism: (4) Depression with anxiety: Plan Irina is a 58 F w/ PMH of PSVT, GERD, endometriosis, asthma, Parkinsonism, Vitamin D deficiency, HLD, depression, anxiety, pre-diabetes, and obesity who presents for acute hypoxia and was admitted for management of acute COVID-19 and PNA. Acute COVID-19 Infection | RLL PNA | Acute Hypoxic Resp Failure - Patient w/ 12 days of progressive respiratory sx (dyspnea, cough, hypoxia) - S/p Prednisone taper at home 03/24/23 and home inhaler use w/o improvement - Presenting with AHRF (O2 Sat 87-89%), improvement following supplemental O2 (4L NC, no O2 at baseline), though continues to require oxygen. - COVID negative x 3 at home, now positive 03/27/23, likely unspecified viral infection prior to COVID19 - CT Chest indicating RLL infiltrate - Physical examination with crackles at RLL on admission. - Leukocytosis on CBC, ProCal Negative - High risk for sepsis 2/2 Strep PNA - Will finish 5 day course of Remdesavir on 04/02, Dexamethasone 6 mg IV for 5 days switched to PO for 5 days ending 10 day course on 04/07, Duonebs PRN, and Albuterol PRN. Continue isolation precautions. Continue Tessalon & Tylenol PRN. - Continue Empiric Abx w/ Ceftriaxone and Azithromycin given sepsis risk in setting of asplenia. Will get a CXR in the AM. - Continue Oxygen support via nasal cannula, encourage pulmonary toilet, continue to wean O2 as tolerated. Parkinsonism: Chronic, stable on home Carbidopa-Levodopa Depression/Anxiety: Chronic, stable on home Wellbutrin Paroxysmal SVT: Chronic, continue home Metoprolol GERD: Chronic, stable, continue home Omeprazole (Pantoprazole inpatient), added Famotidine PRN FEN: Reg Code status: Full Code DVT ppx: Lovenox Isolation: COVID-19 Dispo:Med/Surg Admission and Anticipated Discharge Date Admission Date: March 29, 2023 Supervising Physician Co-Signing Physician Notes I personally examined the patient and verified rodriguez points of history and exam, discussed case, and agree with decision making and plan documented by Dr. Crawford. Patient continues to show clinical improvement, weaning oxygen as tolerated. Last dose of remdesivir today, patient will continue dexamethasone to complete 10-day course, continue nebulizers and albuterol as needed. Subjective Patient seen beside this AM. Patient states that she is feeling better but con tinues to have ongoing dyspnea with ambulation and productive cough. Currently still requiring oxygen via NC. Review of Systems Review of Systems: All systems reviewed & are unremarkable except as noted in Subjective Physical Exam Physical Exam: General: NAD, occasional coughing, pleasant Skin: warm, dry, intact, no rashes or lesions HEENT: NC/AT, anicteric sclera, MMM, bilateral anterior cervical LAD (improved), no thyromegaly Heart: RRR, +S1/S2, no m/r/g Lungs: Non-labored, no wheezing bilaterally, resolved upper airway sounds Abd: +BS, soft, no TTP Ext: warm, 2+ pulses in UE/LE bilaterally, no clubbing/cyanosis or edema Neuro: AO x 4, no focal deficits Results & Data Results & Data Vital Signs (Past 12 Hours) Vital Signs Temp Pulse Resp BP Pulse Ox O2 Del Method O2 Flow Rate 04/02/23 02:35 100 H 18 96 Nasal Cannula 4 04/01/23 22:29 107 H 18 96 Nasal Cannula 4 04/01/23 22:04 Nasal Cannula 4 04/01/23 19:54 36.7 C 97 H 18 102/72 94 Nasal Cannula 3.5 Resident Activity Tracking Resident Involvement: Resident Care Provided Care Provided: Adult Hospital Medicine (3) Parkinsonism Parkinsonism type: unspecified Qualified Code(s): G20 - Parkinson's disease"
[2023-04-02 07:31] LABS: Calcium 8.8 mg/dl (8.6-10.3); Creatinine Clr Calc Pharmacy 103.5 ml/min; Est GFR (Non-African American) 100.1 ml/min; Potassium 4.2 mmol/L (3.5-5.1)
[2023-04-02 08:09] LABS: Hematocrit (blood only) 39.4 % (37.0-47.0); Hemoglobin 13.6 g/dl (12.0-16.0); Mean Corpuscular Hgb Conc 34.5 g/dL (32.0-36.0); Mean Corpuscular Volume 92.7 fL (80.0-100.0); Mean Platelet Volume 13.8 fL (9.4-12.4); Platelet Count 172 K/uL (130-400); RDW Coefficient of Variation 16.1 % (11.5-14.5); RDW Standard Deviation 53.8 fL (36.4-46.3); Red Blood Count 4.25 M/uL (4.20-5.40); White Blood Count 12.73 K/ul (4.8-10.8)
[2023-04-02] MEDS: buPROPion XL 150 MG TABCR PO SCH (09:18)
[2023-04-02] MEDS: PANTOprazole 40 MG TAB PO SCH (09:18)
[2023-04-02] MEDS: dexAMETHasone 6 MG in SYRINGE 0 ML IV SCH (09:19)
[2023-04-02] MEDS: CARBIDOPA/LEVODOPA 50/200MG EXT REL TAB PO SCH ×3 (10:56→21:42)
[2023-04-02] MEDS ORDERED: HYDROCORTISONE 1% CRM 30 GM TUBE EXT PRN (11:26)
[2023-04-02] MEDS: REMDESIVIR 100 MG in SODIUM CHLORIDE 0.9% 230 ML IV SCH (13:04)
[2023-04-02] MEDS: ALBUTEROL HFA 8 GM INHALER INH PRN (17:45)
[2023-04-02] MEDS: METOPROLOL SUCC 25MG EXT REL TAB PO SCH (20:38)
[2023-04-02] MEDS: ENOXAPARIN INJ 40 MG/0.4 ML SYR SQ SCH (21:43)
[2023-04-03] MEDS: cefTRIAXone SODIUM 2,000 MG in DEXTROSE 5 % MINI-B 50 ML IV SCH (00:44)
[2023-04-03] MEDS: AZITHROMYCIN 250 MG in DEXTROSE 5% 250 ML IV SCH (01:26)
[2023-04-03] MEDS: BENZONATATE 100 MG CAPSULE PO PRN ×3 (01:56→22:35)
[2023-04-03] MEDS: ALBUT/IPRATROP 3MG/0.5MG NEB 3 ML VIAL INH SCH ×2 (02:15→07:43)
--- NOTE | 2023-04-03 06:34 | Hospitalist Progress Note ---
"Date of Service April 03, 2023 Assessment & Plan (1) COVID-19: (2) Pneumonia: (3) Parkinsonism: (4) Depression with anxiety: Plan Irina is a 58 F w/ PMH of PSVT, GERD, endometriosis, asthma, Parkinsonism, Vitamin D deficiency, HLD, depression, anxiety, pre-diabetes, and obesity who presents for acute hypoxia and was admitted for management of acute COVID-19 and PNA. Acute COVID-19 Infection | RLL PNA | Acute Hypoxic Resp Failure - Patient w/ 12 days of progressive respiratory sx (dyspnea, cough, hypoxia) - S/p Prednisone taper at home 03/24/23 and home inhaler use w/o improvement - Presenting with AHRF (O2 Sat 87-89%), improvement following supplemental O2 (4L NC, no O2 at baseline), though continues to require oxygen. - COVID negative x 3 at home, now positive 03/27/23, likely unspecified viral infection prior to COVID19 - CT Chest indicating RLL infiltrate - Physical examination with crackles at RLL on admission. - Leukocytosis on CBC, ProCal Negative - High risk for sepsis 2/2 Strep PNA - Will finish 5 day course of Remdesavir on 04/02, Dexamethasone 6 mg IV for 5 days switched to PO for 5 days ending 10 day course on 04/07, Duonebs PRN, and Albuterol PRN. Continue isolation precautions. Continue Tessalon & Tylenol PRN. - Continue Empiric Abx w/ Ceftriaxone and Azithromycin given sepsis risk in setting of asplenia. - Continue Oxygen support via nasal cannula, encourage pulmonary toilet, continue to wean O2 as tolerated. -X-ray done on 04/03 showed increasing atelectasis in the left lung base as well as bibasilar opacities Parkinsonism: Chronic, stable on home Carbidopa-Levodopa Depression/Anxiety: Chronic, stable on home Wellbutrin Paroxysmal SVT: Chronic, continue home Metoprolol GERD: Chronic, stable, continue home Omeprazole (Pantoprazole inpatient), added Famotidine PRN FEN: Reg Code status: Full Code DVT ppx: Lovenox Isolation: COVID-19 Dispo:Med/Surg Admission and Anticipated Discharge Date Admission Date: March 29, 2023 Supervising Physician Co-Signing Physician Notes I personally examined the patient and verified rodriguez points of history and exam, discussed case, and agree with decision making and plan documented by Dr. Crafword. Patient weaning oxygen, feeling improvement overall from COVID-19, has been up and ambulating around room, took shower yesterday. Remains on steroid taper and antibiotics. Unfortunately, patient reports that her family now has COVID at home. We reviewed that she may have to be discharged on oxygen if she continues to have a requirement, but hopeful that she can continue to wean. Subjective Patient seen beside this AM. Patient states that she is feeling better but continues to have ongoing dyspnea with ambulation and at night. As well as a productive cough. Currently still requiring oxygen via NC. Patient states that she is afraid to decrease her oxygen as makes her feel uncomfortable and have shortness of breath. Review of Systems Review of Systems: All systems reviewed & are unremarkable except as noted in Subjective Physical Exam Physical Exam: General: NAD, occasional coughing, pleasant Skin: warm, dry, intact, no rashes or lesions HEENT: NC/AT, anicteric sclera, MMM, bilateral anterior cervical LAD (improved), no thyromegaly Heart: RRR, +S1/S2, no m/r/g Lungs: Non-labored, no wheezing bilaterally, resolved upper airway sounds Abd: +BS, soft, no TTP Ext: warm, 2+ pulses in UE/LE bilaterally, no clubbing/cyanosis or edema Neuro: AO x 4, no focal deficits Results & Data Results & Data Vital Signs (Past 12 Hours) Vital Signs Temp Pulse Resp BP Pulse Ox O2 Del Method O2 Flow Rate 04/03/23 02:15 85 18 97 Nasal Cannula 4 04/02/23 22:20 87 18 94 Nasal Cannula 3 04/02/23 20:36 36.8 C 89 16 88/56 L 94 Nasal Cannula 3 04/02/23 19:47 87 18 97 Nasal Cannula 3 04/02/23 19:35 Nasal Cannula 4 (3) Parkinsonism Parkinsonism type: unspecified Qualified Code(s): G20 - Parkinson's disease"
[2023-04-03] MEDS: buPROPion XL 150 MG TABCR PO SCH (08:08)
[2023-04-03] MEDS: PANTOprazole 40 MG TAB PO SCH (08:08)
[2023-04-03 08:45] LABS: Anion Gap 9 (3-11); Calcium 9.1 mg/dl (8.6-10.3); Carbon Dioxide 26 mmol/L (21-32); Chloride 104 mmol/L (98-107); Magnesium 2.3 mg/dl (1.7-2.4); Sodium 139 mmol/L (136-145)
[2023-04-03 08:47] LABS: Blood Urea Nitrogen 12 mg/dl (6-23); Est GFR (African American) 117.3 ml/min; Est GFR (Non-African American) 101.2 ml/min; Glucose 84 mg/dl (70-99(Fasting))
[2023-04-03] MEDS ORDERED: dexAMETHasone 1 MG TAB PO SCH (09:00)
--- NOTE | 2023-04-03 09:55 | XRay Report ---
TWO VIEW CHEST CLINICAL HISTORY: Pneumonia. FINDINGS: PA and lateral chest radiographs are compared to chest x-ray and chest CT dated 03/28/2023. The cardiomediastinal silhouette is unremarkable. There are dependent airspace opacities seen bilate rally. Increasing linear opacities at the left lung base likely represent atelectasis. No pleural eff usion or pneumothorax is seen. The bony thorax appears intact. IMPRESSION: 1. There are bibasilar airspace opacities. Increasing linear opacities at the left lung base likely r epresent atelectasis. Correlate clinically. 2. No pleural effusion is identified. ACT 112: Negative or not required by law. Electronically signed by: Elroy Solorio M.D. 04/03/2023 9:54 AM
[2023-04-03] MEDS: CARBIDOPA/LEVODOPA 50/200MG EXT REL TAB PO SCH ×3 (10:00→22:35)
[2023-04-03 10:23] LABS: Basophils # (auto) 0.04 K/uL (0.00-0.20); Basophils % (auto) 0.3 %; Eosinophils # (auto) 0.01 K/uL (0.00-0.50); Eosinophils % (auto) 0.1 %; Hematocrit (blood only) 41.3 % (37.0-47.0); Hemoglobin 14.3 g/dl (12.0-16.0); Immature Granulocytes # (auto) 0.19 K/uL (0.01-0.20); Immature Granulocytes % (auto) 1.4 %; Lymphocytes # (auto) 3.01 K/uL (1.20-3.40); Mean Corpuscular Hemoglobin 32.6 pg (25.0-34.0); Mean Corpuscular Hgb Conc 34.6 g/dL (32.0-36.0); Mean Corpuscular Volume 94.3 fL (80.0-100.0); Monocytes # (auto) 1.05 K/uL (0.11-0.59); Monocytes % (auto) 7.7 %; Neutrophils # (auto) 9.36 K/uL (1.40-6.50); Neutrophils % (auto) 68.5 %; RDW Coefficient of Variation 15.9 % (11.5-14.5); RDW Standard Deviation 54.7 fL (36.4-46.3); Red Blood Count 4.38 M/uL (4.20-5.40); White Blood Count 13.66 K/ul (4.8-10.8)
[2023-04-03] MEDS: IBUPROFEN 200 MG TAB PO PRN ×2 (12:06→21:15)
[2023-04-03] MEDS: ALBUT/IPRATROP 3MG/0.5MG NEB 3 ML VIAL INH PRN (16:08)
[2023-04-03] MEDS: ENOXAPARIN INJ 40 MG/0.4 ML SYR SQ SCH (20:42)
[2023-04-03] MEDS: METOPROLOL SUCC 25MG EXT REL TAB PO SCH (20:43)
[2023-04-04] MEDS: cefTRIAXone SODIUM 2,000 MG in DEXTROSE 5 % MINI-B 50 ML IV SCH (01:06)
[2023-04-04] MEDS: AZITHROMYCIN 250 MG in DEXTROSE 5% 250 ML IV SCH (01:43)
[2023-04-04 05:50] LABS: BUN Creatinine Ratio 29.2 (10-20); Calcium 8.7 mg/dl (8.6-10.3); Creatinine Clr Calc Pharmacy 89.1 ml/min; Est GFR (African American) 107.7 ml/min; Potassium 4.3 mmol/L (3.5-5.1)
[2023-04-04 07:11] LABS: Hematocrit (blood only) 39.8 % (37.0-47.0); Mean Corpuscular Hemoglobin 32.5 pg (25.0-34.0); Mean Corpuscular Hgb Conc 35.2 g/dL (32.0-36.0); Mean Corpuscular Volume 92.3 fL (80.0-100.0); Mean Platelet Volume 13.7 fL (9.4-12.4); Platelet Count 173 K/uL (130-400); RDW Coefficient of Variation 15.9 % (11.5-14.5); RDW Standard Deviation 53.8 fL (36.4-46.3); Red Blood Count 4.31 M/uL (4.20-5.40); White Blood Count 14.59 K/ul (4.8-10.8)
--- NOTE | 2023-04-04 07:13 | Hospitalist Progress Note ---
"Date of Service April 04, 2023 Assessment & Plan (1) COVID-19: (2) Pneumonia: (3) Parkinsonism: (4) Depression with anxiety: Plan Irina is a 58 F w/ PMH of PSVT, GERD, endometriosis, asthma, Parkinsonism, Vitamin D deficiency, HLD, depression, anxiety, pre-diabetes, and obesity who presents for acute hypoxia and was admitted for management of acute COVID-19 and PNA. Acute COVID-19 Infection | RLL PNA | Acute Hypoxic Resp Failure - Patient w/ 12 days of progressive respiratory sx (dyspnea, cough, hypoxia) - S/p Prednisone taper at home 03/24/23 and home inhaler use w/o improvement - Presenting with AHRF (O2 Sat 87-89%), improvement following supplemental O2 (4L NC, no O2 at baseline), though continues to require oxygen. - COVID negative x 3 at home, now positive 03/27/23, likely unspecified viral infection prior to COVID19 - CT Chest indicating RLL infiltrate - Physical examination with crackles at RLL on admission. - Leukocytosis on CBC, ProCal Negative - High risk for sepsis 2/2 Strep PNA - Will finish 5 day course of Remdesavir on 04/02, Dexamethasone 6 mg IV for 5 days switched to PO for 5 days ending 10 day course on 04/07, Duonebs PRN, and Albuterol PRN. Continue isolation precautions. Continue Tessalon & Tylenol PRN. - Continue Empiric Abx w/ Ceftriaxone and Azithromycin given sepsis risk in setting of asplenia. - Continue Oxygen support via nasal cannula, encourage pulmonary toilet, c ontinue to wean O2 as tolerated. -X-ray done on 04/03 showed increasing atelectasis in the left lung base as well as bibasilar opacities Parkinsonism: Chronic, stable on home Carbidopa-Levodopa Depression/Anxiety: Chronic, stable on home Wellbutrin Paroxysmal SVT: Chronic, continue home Metoprolol GERD: Chronic, stable, continue home Omeprazole (Pantoprazole inpatient), added Famotidine PRN FEN: Reg Code status: Full Code DVT ppx: Lovenox Isolation: COVID-19 Dispo:Med/Surg Admission and Anticipated Discharge Date Admission Date: March 29, 2023 Supervising Physician Co-Signing Physician Notes I personally examined the patient and verified all rodriguez points of history and exam, discussed case, and agree with decision making with Dr Mahan Feeling better than whenever she came in, but still pretty bad. Got up and got cleaned up, and then was extremely fatigued and had to rest. Vitals noted, in general she is awake and alert pleasant no distress, but does appear quite fatigued. Basilar rales otherwise no rhonchi or wheezes. Asymmetric. Range COVID with secondary bacterial overgrowth pneumonia and hypoxia secondary to what appears to be predominantly the bacterial overgrowth. Continue antibiotics and supportive care. Time. Anticipate slow improvement. Otherwise as above. DVT prophylaxisLovenox Subjective Patient seen and examined bedside. Patient has been between 1.5L-2L NC today, notes some improvement each day but ongoing cough. Has been eating and drinking without issue. She notes that she is concerned about being able to go home since her family members are also sick and will note be able to care for her. Review of Systems Review of Systems: As per above Physical Exam Constitutional: well developed and well nourished; no acute distress Eyes: + anicteric sclerae; no conjunctival abn ormality ENMT: Ears: no external ear abnormality Nose: no external nose abnormality Moist mucous membranes Respiratory: Scattered right rhonchi, frequent cough. No accessory muscle use. Nasal cannula oxygen in place Cardiovascular: Rate/Rhythm: regular rate and regular rhythm No lower extremity edema Gastrointestinal (Abdomen): Abdomen soft, nontender and nondistended Musculoskeletal: Moves all limbs independently Skin: no rashes, warm and dry Psychiatric: A+Ox3, euthymic affect Results & Data Results & Data Vital Signs (Past 12 Hours) Vital Signs Temp Pulse Resp BP Pulse Ox O2 Del Method O2 Flow Rate 04/03/23 20:42 Nasal Cannula 2.5 04/03/23 20:24 36.7 C 77 16 123/77 95 Nasal Cannula 2.5 Resident Activity Tracking Resident Involvement: Resident Care Provided Care Provided: Adult Hospital Medicine (3) Parkinsonism Parkinsonism type: unspecified Qualified Code(s): G20 - Parkinson's disease"
[2023-04-04] MEDS: BENZONATATE 100 MG CAPSULE PO PRN ×3 (08:41→22:41)
[2023-04-04] MEDS: buPROPion XL 150 MG TABCR PO SCH (08:41)
[2023-04-04] MEDS: dexAMETHasone 4 MG TAB PO SCH (08:42)
[2023-04-04] MEDS: PANTOprazole 40 MG TAB PO SCH (08:42)
[2023-04-04] MEDS: CARBIDOPA/LEVODOPA 50/200MG EXT REL TAB PO SCH ×3 (10:06→22:40)
[2023-04-04] MEDS: ALBUT/IPRATROP 3MG/0.5MG NEB 3 ML VIAL INH PRN ×2 (13:04→23:10)
--- NOTE | 2023-04-04 18:13 | Billing Data ---
Date of Service April 04, 2023 Coding Level of Care Code 79121 SUB INP/OBS CARE
[2023-04-04] MEDS: ENOXAPARIN INJ 40 MG/0.4 ML SYR SQ SCH (21:55)
[2023-04-04] MEDS: METOPROLOL SUCC 25MG EXT REL TAB PO SCH (21:55)
[2023-04-05] MEDS: AZITHROMYCIN 250 MG in DEXTROSE 5% 250 ML IV SCH (02:37)
[2023-04-05 07:17] LABS: Hemoglobin 14.1 g/dl (12.0-16.0); Mean Corpuscular Hgb Conc 34.4 g/dL (32.0-36.0); Mean Platelet Volume 13.7 fL (9.4-12.4); Platelet Count 189 K/uL (130-400); Red Blood Count 4.41 M/uL (4.20-5.40)
[2023-04-05 07:18] LABS: Basophils # (auto) 0.05 K/uL (0.00-0.20); Basophils % (auto) 0.3 %; Eosinophils # (auto) 0.01 K/uL (0.00-0.50); Eosinophils % (auto) 0.1 %; Immature Granulocytes # (auto) 0.31 K/uL (0.01-0.20); Lymphocytes # (auto) 2.42 K/uL (1.20-3.40); Lymphocytes % (auto) 15.9 %; Monocytes # (auto) 1.59 K/uL (0.11-0.59); Monocytes % (auto) 10.5 %; Neutrophils # (auto) 10.82 K/uL (1.40-6.50); Neutrophils % (auto) 71.2 %; Target Cells 1+
--- NOTE | 2023-04-05 07:42 | Hospitalist Progress Note ---
"Date of Service April 05, 2023 Assessment & Plan (1) COVID-19: (2) Pneumonia: (3) Parkinsonism: (4) Depression with anxiety: Plan Irina is a 58 F w/ PMH of PSVT, GERD, endometriosis, asthma, Parkinsonism, Vitamin D deficiency, HLD, depression, anxiety, pre-diabetes, and obesity who presents for acute hypoxia and was admitted for management of acute COVID-19 and PNA. Acute COVID-19 Infection | RLL PNA | Acute Hypoxic Resp Failure - Patient w/ 12 days of progressive respiratory sx (dyspnea, cough, hypoxia) - S/p Prednisone taper at home 03/24/23 and home inhaler use w/o improvement - Presenting with AHRF (O2 Sat 87-89%), improvement following supplemental O2 (4L NC, no O2 at baseline), though continues to require oxygen. - COVID negative x 3 at home, now positive 03/27/23, likely unspecified viral infection prior to COVID19 - CT Chest indicating RLL infiltrate - Physical examination with crackles at RLL on admission. - Leukocytosis on CBC, ProCal Negative - High risk for sepsis 2/2 Strep PNA - Will finish 5 day course of Remdesavir on 04/02, Dexamethasone 6 mg IV for 5 days switched to PO for 5 days ending 10 day course on 04/07, Duonebs PRN, and Albuterol PRN. Continue isolation precautions. Continue Tessalon & Tylenol PRN. - Continue antibiotics w/ Ceftriaxone and Azithromycin given sepsis risk in setting of asplenia. -X-ray done on 04/03 showed increasing atelectasis in the left lung base as well as bibasilar opacities Parkinsonism: Chronic, stable on home Carbidopa-Levodopa Depression/Anxiety: Chronic, stable on home Wellbutrin Paroxysmal SVT: Chronic, continue home Metoprolol GERD: Chronic, stable, continue home Omeprazole (Pantoprazole inpatient), added Famotidine PRN FEN: Reg Code status: Full Code DVT ppx: Lovenox Isolation: COVID-19 Dispo:Med/Surg Admission and Anticipated Discharge Date Admission Date: March 29, 2023 Supervising Physician Co-Signing Physician Notes I personally examined the patient and verified all rodriguez points of history and exam, discussed case, and agree with decision making with Dr Mahan Feeling better breathing better feeling like hopefully home by tomorrow. Off oxygen since the middle of the night/early this morning. Vitals noted, in general breathing is unlabored no conversational dyspnea. Less fatigue. Overall brighter. Skin without rashes pallor or icterus. Neuro without focal deficits. COVID with secondary bacterial overgrowth pneumonia and hypoxia secondary to what appears to be predominantly the bacterial overgrowth. Continue antibiotics and supportive care. Time. Showing slow but steady improvement. Otherwise as above. DVT prophylaxisLovenox Subjective Patient seen and examined at bedside. Patient notes that today is a bit better, is currently on RA. Ongoing cough but improvement from prior day. Is hopeful to go home tomorrow if still improving. Eating and drinking without issue. Review of Systems Review of Systems: As per above Physical Exam Constitutional: well developed and well nourished; no acute distress Eyes: + anicteric sclerae; no conjunctival abn ormality ENMT: Ears: no external ear abnormality Nose: no external nose abnormality Respiratory: +scattered rhonchi, on room air. Good ae ration Cardiovascular: Rate/Rhythm: regular rate and regular rhythm Skin: no rashes, warm and dry Psychiatric: A+Ox3, euthymic affect Results & Data Results & Data Vital Signs (Past 12 Hours) Vital Signs Temp Pulse Pulse Resp BP Pulse Ox O2 Del Method 04/05/23 06:39 80 16 94 Room Air 04/04/23 23:12 73 18 98 Nasal Cannula 04/04/23 20:31 Nasal Cannula 04/04/23 20:31 36.5 C 85 18 108/69 94 Nasal Cannula O2 Flow Rate 04/05/23 06:39 04/04/23 23:12 2 04/04/23 20:31 2 04/04/23 20:31 2 Resident Activity Tracking Resident Involvement: Resident Care Provided Care Provided: Adult Hospital Medicine (3) Parkinsonism Parkinsonism type: unspecified Qualified Code(s): G20 - Parkinson's disease"
[2023-04-05] MEDS: PANTOprazole 40 MG TAB PO SCH (08:08)
[2023-04-05] MEDS: dexAMETHasone 4 MG TAB PO SCH (08:08)
[2023-04-05] MEDS: buPROPion XL 150 MG TABCR PO SCH (08:08)
[2023-04-05] MEDS: BENZONATATE 100 MG CAPSULE PO PRN ×3 (08:11→22:46)
[2023-04-05] MEDS: CARBIDOPA/LEVODOPA 50/200MG EXT REL TAB PO SCH ×3 (10:06→22:46)
[2023-04-05] MEDS: cefTRIAXone SODIUM 2,000 MG in DEXTROSE 5 % MINI-B 50 ML IV SCH (10:06)
--- NOTE | 2023-04-05 12:29 | Billing Data ---
Date of Service April 05, 2023 Coding Level of Care Code 77457 SUB INP/OBS CARE
[2023-04-05] MEDS: METOPROLOL SUCC 25MG EXT REL TAB PO SCH (20:46)
[2023-04-05] MEDS: IBUPROFEN 200 MG TAB PO PRN (21:00)
[2023-04-05] MEDS: ENOXAPARIN INJ 40 MG/0.4 ML SYR SQ SCH (21:02)
[2023-04-06] MEDS: AZITHROMYCIN 250 MG in DEXTROSE 5% 250 ML IV SCH (02:17)
[2023-04-06 08:08] LABS: Hematocrit (blood only) 42.4 % (37.0-47.0); Hemoglobin 14.3 g/dl (12.0-16.0); Mean Corpuscular Hemoglobin 31.8 pg (25.0-34.0); Mean Corpuscular Hgb Conc 33.7 g/dL (32.0-36.0); Mean Corpuscular Volume 94.2 fL (80.0-100.0); Mean Platelet Volume 13.6 fL (9.4-12.4); Platelet Count 119 K/uL (130-400); RDW Coefficient of Variation 15.6 % (11.5-14.5); RDW Standard Deviation 53.7 fL (36.4-46.3); White Blood Count 14.64 K/ul (4.8-10.8)
[2023-04-06 08:09] LABS: Basophils # (auto) 0.05 K/uL (0.00-0.20); Basophils % (auto) 0.3 %; Immature Granulocytes # (auto) 0.21 K/uL (0.01-0.20); Immature Granulocytes % (auto) 1.4 %; Lymphocytes # (auto) 2.42 K/uL (1.20-3.40); Lymphocytes % (auto) 16.5 %; Monocytes # (auto) 1.33 K/uL (0.11-0.59); Monocytes % (auto) 9.1 %; Neutrophils # (auto) 10.63 K/uL (1.40-6.50); Neutrophils % (auto) 72.7 %; Polychromasia 1+; Toxic Vacuolation 1+
[2023-04-06] MEDS: dexAMETHasone 4 MG TAB PO SCH (09:14)
[2023-04-06] MEDS: BENZONATATE 100 MG CAPSULE PO PRN (09:14)
[2023-04-06] MEDS: buPROPion XL 150 MG TABCR PO SCH (09:14)
[2023-04-06] MEDS: PANTOprazole 40 MG TAB PO SCH (09:14)
[2023-04-06] MEDS: cefTRIAXone SODIUM 2,000 MG in DEXTROSE 5 % MINI-B 50 ML IV SCH (09:16)
[2023-04-06] MEDS: CARBIDOPA/LEVODOPA 50/200MG EXT REL TAB PO SCH (10:19)
--- NOTE | 2023-04-06 10:31 | Discharge Summary ---
"Date of Service April 06, 2023 Admission HPI Per Admitting Provider Irina Dykes is a pleasant 58yo female with history of GERD, Parkinsonism and asplenia presenting from home with Covid-19 infection, cough and hypoxia. Patient reports that her symptoms started on 03/17/23 as a dry cough. She did have multiple close contacts that tested POSITIVE for Covid-19. She did two home tests which were both NEGATIVE. Her symptoms persisted. On 03/23/23 she noted some increased shortness of breath with ambulation. She was seen by her PCP on 03/24/23. She had an RSV/Covid/Influenza test that was performed and NEGATIVE. She was diagnosed with acute exacerbation of asthma and was started on a Prednisone taper and instructed to continue with her home DuoNebs and Ventolin. On 03/25 - 03/26 she felt acutely worse with increased cough and shortness of breath. She also began having episodes of decreased saturations into the high 80's. She did another home Covid test on 03/27/23 and it was found to be POSITIVE. She reports ongoing shortness of breath with episodes of hypoxia, saturations of 87-88% at home. Ongoing dry cough and chest tightness. Denies chest pain, fever, chills, myalgias. No abdominal pain, nausea, vomiting or diarrhea. No additional complaints at this time. In the ER she is afebrile, HD stable. Saturating 88% on room air. Placed on supplemental O2 with improvement ER Course: Albuterol 12mL neb Solumedrol 125mg IV Admission Exam Per Admitting Provider General: patient ill in appearance, frequent coughing, answering questions appropriately Skin: warm, dry, intact, no rashes or lesions HEENT: NC/AT, PERRL, EOMI, anicteric sclera, conjunctiva without injection, external ear normal to inspection and nontender, nares patent, moist mucus membranes, dentition intact, no oropharyngeal lesions, neck supple, trachea midline, no LAD, no thyromegaly, no JVD Heart: +S1/S2, regular, no m/r/g Lungs: equal air entry bilaterally, diffuse inspiratory and expiratory wheezing throughout, + crackles present in right lung base Abd: +BS, soft, NT/ND, no masses/organomegaly/ascites Ext: warm, 2+ pulses in UE/LE bilaterally, no clubbing/cyanosis or edema Neuro: nonfocal, patient AA&O x 4, speech intact, no facial droop, moving all extremities on command with equal strength 5/5 Principal Diagnosis Hypoxia, pneumonia, COVID Discharge Exam Constitutional well developed and well nourished; no acute distress Eyes + anicteric sclerae; no conjunctival abnormality ENMT Ears: no external ear abnormality Nose: no external nose abnormality Moist mucous membranes Respiratory Few scattered wheezes and rhonchi. Frequent cough. Cardiovascular No lower extremity edema, limbs well perfused Skin no rashes, warm and dry Psychiatric A+Ox3, euthymic affect Discharge Data Allergies Allergy/AdvReac Type Severity Reaction Status Date / Time bee venom protein (honey bee) Allergy Unknown SHORTNESS Verified 03/24/23 10:42 OF BREATH No Known Drug Allergies Allergy Verified 03/24/23 10:42 Consultations 03/28/23 23:32 ED Decision to Admit Stat Ordered Studies 03/28/23 21:45 CT for pulmonary embolism PE [CT angio chest PE protocol] Stat Chest X-Ray 03/28/23 19:17 XR chest 1V portable CLINICAL HISTORY: Dyspnea. COMPARISON STUDY: Chest radiograph July 27, 2021. Chest radiograph March 24, 2023. FINDINGS: Lung volumes are normal. Lungs are clear. There is no pneumothorax or pleural effusion. Cardiac size is stable. Mediastinal contours are normal. There is no evidence for pulmonary edema. IMPRESSION: No acute cardiopulmonary findings. ACT 112: Negative or not required by law. Electronically signed by: Volodymyr Peoples M.D. 03/28/2023 7:43 PM Chest CTA 03/28/23 21:45 Exam(s): CTA CHEST IV Amt: 119ML OPTIRAY 320 EXAM: CT Angiography Chest With Intravenous Contrast CLINICAL HISTORY: Reason for exam: PE. TECHNIQUE: Axial computed tomographic angiography images of the chest with intravenous contrast. CTDI is 28.03 mGy and DLP is 793 mGy-cm. Automated exposure control was utilized for the study. A dose lowering technique was utilized adhering to the principles of ALARA. MIP reconstructed images were created and reviewed. COMPARISON: 07/27/2021 FINDINGS: Pulmonary arteries: Unremarkable. No pulmonary embolism. Aorta: No acute findings. No thoracic aortic aneurysm. Lungs: Linear atelectasis within both lower lobes unchanged from prior exam. More confluent opacity within the right lower lobe likely etiology is new since prior study. Pleural space: Unremarkable. No significant effusion. No pneumothorax. Heart: Unremarkable. No cardiomegaly. No significant pericardial effusion. No evidence of RV dysfunction. Bones/joints: No acute fracture. No dislocation. Soft tissues: Unremarkable. Lymph nodes: Unremarkable. No enlarged lymph nodes. IMPRESSION: 1. Right lower lobe infiltrate likely of infectious or inflammatory etiology 2. No pulmonary embolus Electronically signed by: Lincoln Khalil MD 03/28/23 23:07 PM Chest X-Ray 04/03/23 07:00 TWO VIEW CHEST CLINICAL HISTORY: Pneumonia. FINDINGS: PA and lateral chest radiographs are compared to chest x-ray and chest CT dated 03/28/2023. The cardiomediastinal silhouette is unremarkable. There are dependent airspace opacities seen bilaterally. Increasing linear opacities at the left lung base likely represent atelectasis. No pleural effusion or pneumothorax is seen. The bony thorax appears intact. IMPRESSION: 1. There are bibasilar airspace opacities. Increasing linear opacities at the left lung base likely represent atelectasis. Correlate clinically. 2. No pleural effusion is identified. ACT 112: Negative or not required by law. Electronically signed by: Elroy Solorio M.D. 04/03/2023 9:54 AM Hospital Course (1) COVID-19: (2) Pneumonia: (3) Parkinsonism: (4) Depression with anxiety: Toshia Arevalo is a 58 F w/ PMH of PSVT, GERD, endometriosis, asthma, Parkinsonism, Vitamin D deficiency, HLD, depression, anxiety, pre-diabetes, and obesity who presented for acute hypoxia and was admitted for management of acute COVID-19 and PNA. Acute COVID-19 Infection | RLL PNA | Acute Hypoxic Resp Failure -Patient presented w/ 12 days of progressive respiratory sx (dyspnea, cough, hypoxia) that did not improve with home prednisone taper and inhaler. -Tested positive for COVID on admission, completed course of Remdesivir. CT chest indicated RLL infiltrate, patient was started on antibiotics with Ceftriaxone/Azithromycin as well as dexamethasone. -Patient was able to be weaned off of supplemental oxygen (required up to 5L NC during admission), was on room air for <24 hours at time of discharge -Discharged with short Prednisone taper and 5 additional days of Cefdinir. Parkinsonism: Chronic, stable on home Carbidopa-Levodopa Depression/Anxiety: Chronic, stable on home Wellbutrin Paroxysmal SVT: Chronic, continue home Metoprolol GERD: Chronic, stable, continue home Omeprazole Total Time Total Time Spent Total Time Spent (In Minutes): <30 Discharge Plan Discharge Items Patient Disposition: Home - Self-Care Reason For Visit: HYPOXIA, COVID-19 Discharge Diagnosis: hypoxia, pneumonia, COVID Activity: Per Instructions section Non-emergency contact: Primary Care Provider Call non-emergency contact if: you have any medication questions and your symptoms worsen Follow-up/Referrals: Erin Rodriguez MD [Primary Care Provider] - 04/11/23 4:00 pm Diet: Regular Addtl Attending Provider Instructions: You were admitted to the hospital for hypoxia and shortness of breath. You were treated with supplemental oxygen and antibiotics for your pneumonia. Fortunately you improved enough to not require any supplemental oxygen at time of discharge. As we discussed, the fatigue/exhaustion will likely take longer than your respiratory symptoms to resolve. Please follow up with your PCP within the next week. A discharge summary will be sent to your primary care physician to ensure continuity of care. Follow-up appointments: You have an appointment with your PCP scheduled for Tuesday (04/11/23). If you are unable to make this appointment, notify your provider. Keep all your follow-up appointments as already scheduled. If you cannot make an appointment, notify your provider. Medications: Your medication list has been reviewed and reconciled upon discharge to ensure accuracy and continuity of care. An updated list of all your medications is included with your hospital discharge paperwork. Please review this list closely, and make note of any changes. *You already received a dose of antibiotics and steroid today, please start both of the medications below tomorrow (04/07)* We sent a new medication called Cefdinir 300mg. Take one capsule by mouth twice daily for 5 days. -You do not need any additional days of azithromycin. We sent a new medication called Prednisone to your pharmacy. Take Prednisone 10mg: take three tablets by mouth on 04/07, take two tablets by mouth on 04/08, and take one tablet by mouth on 04/09. CALL 911 OR GO TO THE EMERGENCY DEPARTMENT if you experience any of the following: Sudden, severe abdominal pain or nausea/vomiting Severe chest pain, or chest pain that radiates (moves) to your jaw or arm Sudden, severe shortness of breath or difficulty breathing Thank you for allowing us to participate in your care. Pending Studies at Discharge: No Stand-Alone Forms: Work/School Release Medications and DC Order Prescriptions: New cefdinir 300 mg capsule 300 mg PO BID 5 Days Qty: 10 0RF Rx Instructions: Start taking on 04/07 prednisone 10 mg tablet 10 mg PO DIRECTED Qty: 6 0RF Rx Instructions: Take three tablets by mouth on 04/07, take two tablets by mouth on 04/08, take one tablet by mouth on 04/09 Continued promethazine 25 mg tablet 25 mg PO Q6H PRN (Reason: nausea and vomiting) Qty: 20 0RF ketoconazole 2 % shampoo 1 applic topical .COMPLEX Qty: 120 1RF Rx Instructions: 1 applic topical to the scalp 2-3 times a week. Allow to sit on the scalp for 5 minutes before rinsing. ondansetron 8 mg tablet,disintegrating 8 mg PO Q8H PRN (Reason: nausea and vomiting) Qty: 20 0RF Nourianz 20 mg tablet 20 mg PO QAM Qty: 90 3RF carbidopa-levodopa 50-200 mg tablet extended release 1 tab PO TID 90 Days Qty: 270 1RF Rx Instructions: divide evenly over waking hours valacyclovir [Valtrex] 1 gram tablet 1,000 mg PO Q8H PRN (Reason: .Breakouts) metoprolol succinate 25 mg tablet extended release 24 hr 12.5 mg PO DAILY Qty: 45 3RF albuterol sulfate [Ventolin HFA] 90 mcg/actuation HFA aerosol inhaler See Rx Instructions INH Q6H PRN (Reason: Shortness Of Breath) Qty: 18 2RF Rx Instructions: 1-2 puffs inhalation every 6 hours PRN; ipratropium-albuterol 0.5 mg-3 mg(2.5 mg base)/3 mL solution for nebulization 3 ml inhalation Q6H PRN (Reason: wheezing) Qty: 90 1RF bupropion HCl 150 mg tablet extended release 24 hr 150 mg PO QAM Qty: 30 5RF (DME) nebulizers [Compact Ultrasonic Nebulizer] Misc See Rx Instructions .ROUTE .MEDSUPPLY Qty: 1 0RF Rx Instructions: Use as directed to administer prescribed DuoNeb multivitamin Tablet 1 tab PO QAM ibuprofen [Advil] 200 mg Tablet 800 mg PO DAILY PRN (Reason: Pain) omeprazole 40 mg capsule,delayed release(DR/EC) 40 mg PO QPM ketoconazole 2 % cream 1 applic topical BID PRN (Reason: ..) Discontinued prednisone 10 mg tablet See Rx Instructions PO DAILY Qty: 30 0RF Rx Instructions: 4 daily for 3 days, 3 daily for 3 days, 2 daily for three days, 1 daily for 3 days. PO DAILY; Discharge Orders: Discharge Order (Routine); Ordered 04/06/23 Ordered By: Ermelinda Bui/Other Patient Handouts: COVID-19 Home Care Admission Data Admit Date/Time: 03/29/23 00:17 Attending Provider: Lincoln Carpenter Admit Provider: Emperatriz Velasquez Primary Care Provider: Erin Rodriguez Other Providers: Emperatriz Velasquez Other Interventions: Discharge Summary Assessment (RN) Last Done: 04/06/23 10:45 Supervising Physician Co-Signing Physician Notes I personally examined the patient and verified all rodriguez points of history and exam, discussed case, and agree with decision making with Dr Mahan Still easily fatigued, but overall improving. Definitely feels up to going home today. Vitals noted, in general breathing is unlabored no conversational dyspnea. Skin without rashes, pallor, icterus. Neuro without focal deficits. COVID with secondary bacterial overgrowth pneumonia and hypoxia secondary to what appears to be predominantly the bacterial overgrowth. Continue antibiotics (Finish out a course with p.o. cefdinir) and supportive care. Time. Showing slow but steady improvement. Otherwise as above. safe/stable for home DVT prophylaxisLovenox"
--- NOTE | 2023-04-06 15:14 | Billing Data ---
Date of Service April 06, 2023 Coding Level of Care Code 39009 IN/OBS DISCH 30 MIN/LESS
== END 2023-04-06 11:46 | disposition home or self-care (01) | DRG 177 ==
LOC: ED 18:51 → EDINP 03-29 00:17 → SUATTDRO 03-29 00:17 → 3E 03-29 08:59